=== PATIENT | male | born 1945 | race Caucasian/White ===

== ENCOUNTER → 2023-03-14 15:25 | Outpatient (REF) | payer MEDICARE, OTHER, SELFPAY ==
[2023-03-14 18:06] LABS: Vitamin B12 244 pg/ml (239-931)
== END ==
LOC: REG 15:25
PROVIDERS: ATTENDING PHYSICIAN Family Medicine
DX: E53.8 Deficiency of other specified B group vitamins (principal)
CPT/HCPCS: 36415; 82607

== ENCOUNTER → 2023-05-15 10:05 | Outpatient (REF) | payer MEDICARE, OTHER, SELFPAY ==
[2023-05-15 11:15] LABS: % Basophils 0.4 % (0-2); % Eosinophils 1.5 % (0-6); % Immature Granulocytes 0.3 % (0-0.5); % Lymphocytes 21.1 % (20.5-51.1); % Monocytes 6.1 % (1.7-9.3); % Neutrophils 70.6 % (42.2-75.2); Absolute Eosinophils 0.1 10^3/uL (0-0.7); Absolute Lymphocytes 1.6 10^3/uL (1.2-3.4); Absolute Monocytes 0.5 10^3/uL (0.1-0.6); Absolute Neutrophils 5.3 10^3/uL (1.4-6.5); Hematocrit 45.4 % (39.0-52.0); Hemoglobin 15.2 g/dL (13.0-18.0); Mean Corp Hgb Conc. 33.5 g/dL (33.0-37.0); Mean Corpuscular Hgb 32.3 pg (27.0-31.0); Mean Corpuscular Volume 96.4 fL (80.0-94.0); Mean Platelet Volume 10.1 fL (7.4-10.4); Nucleated Red Blood Cells % 0 % (-); Platelet Count 198 10^3/uL (130-400); Red Blood Cell Count 4.71 10^6/uL (4.70-6.10); Red Cell Dist. Width 13.4 % (11.5-14.5); White Blood Cell Count 7.5 10^3/uL (4.8-10.8)
[2023-05-15 11:57] LABS: ALT (SGPT) 18 U/L (0-50); AST (SGOT) 23 U/L (17-59); Albumin 4.3 g/dl (3.5-5.0); Alkaline Phosphatase 67 U/L (38-126); Direct Bilirubin 0.4 mg/dl (0.0-0.4); Iron 113 ug/dl (49-181); Total Bilirubin 0.8 mg/dl (0.2-1.3); Total Protein 6.7 g/dl (6.3-8.2)
[2023-05-15 12:06] LABS: Percent Saturation 42 % (20-50); Total Iron Binding Capacity 265 ug/dl (261-462)
[2023-05-15 12:56] LABS: Folate > 20.0 ng/ml (2.76-20)
[2023-05-15 13:20] LABS: Vitamin B12 > 1000 pg/ml (239-931)
[2023-05-15 13:55] LABS: Vitamin B12 > 1000 pg/ml (239-931)
[2023-05-18 10:36] LABS: Methylmalonic Acid 0.19 umol/L (0.00-0.40)
[2023-05-18 18:42] LABS: Chromogranin A 184 ng/mL (0-187)
== END ==
LOC: REG 10:05
PROVIDERS: ATTENDING PHYSICIAN Internal Medicine Hematology & Oncology; FAMILY PHYSICIAN Family Medicine; REFERRING PHYSICIAN Specialist
DX: C7A.098 Malignant carcinoid tumors of other sites (principal); E34.0 Carcinoid syndrome; D50.9 Iron deficiency anemia, unspecified; E53.8 Deficiency of other specified B group vitamins
CPT/HCPCS: 36415; 80076; 82607; 82728; 82746; 83540; 83550; 83921; 85025; 86316

== ENCOUNTER → 2023-06-25 15:03 | Outpatient (REF) | payer MEDICARE, OTHER, SELFPAY ==
[2023-06-25 15:40] LABS: Blood Urea Nitrogen 30 mg/dl (9-20); Calcium 10.2 mg/dl (8.4-10.2); Carbon Dioxide 26 mmol/L (22-30); Chloride 107 mmol/L (98-107); Glucose 123 mg/dl (70-99); Phosphorus 2.5 mg/dl (2.5-4.5); Potassium 3.6 mmol/L (3.5-5.1); Sodium 141 mmol/L (135-145); eGFR 44.65
[2023-06-25 16:11] LABS: PSA, Total - Diagnostic 4.97 ng/ml (0.0-4.0)
[2023-06-25 16:17] LABS: Intact PTH 125.2 pg/ml (13.6-85.8)
[2023-06-25 16:55] LABS: Urine Protein < 5 mg/dl (0-12)
== END ==
LOC: REG 15:03
PROVIDERS: ATTENDING PHYSICIAN Specialist; FAMILY PHYSICIAN Family Medicine
DX: N18.31 Chronic kidney disease, stage 3a (principal); N25.81 Secondary hyperparathyroidism of renal origin; I10 Essential (primary) hypertension; C61 Malignant neoplasm of prostate
CPT/HCPCS: 36415; 80048; 82570; 83970; 84100; 84153; 84156

== ENCOUNTER → 2023-09-02 11:07 | Outpatient (REF) | payer MEDICARE, OTHER, SELFPAY ==
[2023-09-02 11:45] LABS: Ionized Calcium 1.38 mMOL/L (1.15-1.33)
[2023-09-02 12:09] LABS: ALT (SGPT) 16 U/L (0-50); AST (SGOT) 21 U/L (17-59); Albumin 4.2 g/dl (3.5-5.0); Alkaline Phosphatase 68 U/L (38-126); Blood Urea Nitrogen 22 mg/dl (9-20); Calcium 10.6 mg/dl (8.4-10.2); Carbon Dioxide 23 mmol/L (22-30); Chloride 110 mmol/L (98-107); Glucose 90 mg/dl (70-99); Sodium 141 mmol/L (135-145); Total Bilirubin 0.8 mg/dl (0.2-1.3); Total Protein 6.5 g/dl (6.3-8.2); eGFR 41.52
[2023-09-02 12:25] LABS: Vitamin D, 25-OH*** 33.8 ng/mL (30-80)
[2023-09-04 10:22] LABS: Intact PTH 55.2 pg/ml (13.6-85.8)
== END ==
LOC: REG 11:07
PROVIDERS: ATTENDING PHYSICIAN Internal Medicine Endocrinology, Diabetes & Metabolism; FAMILY PHYSICIAN Family Medicine; OTHER PHYSICIAN Internal Medicine Hematology & Oncology; REFERRING PHYSICIAN Specialist
DX: N25.81 Secondary hyperparathyroidism of renal origin (principal); E55.9 Vitamin D deficiency, unspecified
CPT/HCPCS: 36415; 80053; 82306; 82330; 83970

== ENCOUNTER → 2023-09-20 09:33 | Outpatient (REF) | payer MEDICARE, OTHER, SELFPAY | LOC: RAD 09:33 | PROVIDERS: ATTENDING PHYSICIAN Internal Medicine Endocrinology, Diabetes & Metabolism; FAMILY PHYSICIAN Family Medicine | DX: N25.81 Secondary hyperparathyroidism of renal origin (principal) | CPT/HCPCS: 78071; A9500 ==

== ENCOUNTER 2023-09-29 11:32 | Inpatient (IN) | payer MEDICARE, OTHER, SELFPAY ==
[2023-09-29] VITALS (7 sets, daily range): BP systolic 116–194; BP diastolic 69–101
[2023-09-29 09:44] LABS: Glucose - Point of Care 97 mg/dl (70-99)
[2023-09-29 09:54] LABS: % Basophils 0.6 % (0-2); % Eosinophils 5.7 % (0-6); % Immature Granulocytes 0.3 % (0-0.5); % Lymphocytes 18.9 % (20.5-51.1); % Monocytes 8.1 % (1.7-9.3); % Neutrophils 66.4 % (42.2-75.2); Absolute Basophils 0.1 10^3/uL (0-0.2); Absolute Eosinophils 0.5 10^3/uL (0-0.7); Absolute Lymphocytes 1.7 10^3/uL (1.2-3.4); Absolute Monocytes 0.7 10^3/uL (0.1-0.6); Absolute Neutrophils 5.8 10^3/uL (1.4-6.5); Hemoglobin 14.2 g/dL (13.0-18.0); Mean Corp Hgb Conc. 34.6 g/dL (33.0-37.0); Mean Corpuscular Hgb 33.3 pg (27.0-31.0); Mean Corpuscular Volume 96.2 fL (80.0-94.0); Mean Platelet Volume 9.5 fL (7.4-10.4); Nucleated Red Blood Cells % 0 % (-); Platelet Count 150 10^3/uL (130-400); Red Blood Cell Count 4.26 10^6/uL (4.70-6.10); Red Cell Dist. Width 13.2 % (11.5-14.5); White Blood Cell Count 8.8 10^3/uL (4.8-10.8)
--- NOTE | 2023-09-29 10:01 | CON.NEURO4 ---
Consultation - Neurology 4
-
CONSULTING PHYSICIAN: Yuly
REFERRING PHYSICIAN: Fernando
DICTATED BY: Yuly
DATE/TIME OF REQUEST: 09/29/23 at 937
DATE/TIME OF CONSULTATION:09/29/23 at 945
Reason for Consultation: stroke alert
History of Present Illness:
78-year-old male presents for evaluation for aphasia, dysarthria and right facial weakness. His confirms that at 7 AM he woke up at his baseline. He went back to sleep. Around 815 he woke up again and was 'speaking gibberish', was dysarthric
and had noticeable right facial weakness. He was able to get up and walk to the bathroom. No other focal neurological deficits. He did noticed the change and was 'pointing to his face and looking confused.' Symptoms improved while he was in the
ER. Only residual symptom is right facial weakness. Of note he has a history of B12 deficiency and remote carcinoid tumor status post bowel resection. He has had lower extremity paresthesias, hearing loss and memory issues going back to last
September or October. This had improved with taking B12 but seems to have worsened recently. Family reports some gait festination, stooped posture, gait imbalance, and worsening short-term and long-term memory as well as increased urinary frequency
over the past few months. He does not have any tremor. He has not seen a neurologist.
Past Medical History: HTN, Hypercholesterolemia, Remote history of carcinoid, History of kidney stones
Past Surgical History: Appendectomy and Bowel resection
Social History
Tobacco: Non-smoker
Alcohol: Occasional
Personal:
Living: with family
Employment: Retired
Family History
Family History: mom with AD, onset in 60s or 70s
Allergies
lisinopril [Lisinopril] Allergy (Verified 09/29/23 09:52)
Swelling
octreotide Adverse Reaction (Verified 09/29/23 09:52)
Diarrhea, Vomiting
hospital linen Allergy (Uncoded 09/29/23 09:35)
Rash
Home Medications
�Medication �Instructions �Recorded
acetaminophen 325 mg tablet 325 mg PO QPM 12/04/22
(Tylenol)
acetaminophen 325 mg tablet 650 mg PO DAILY 12/04/22
(Tylenol)
allopurinol 300 mg tablet 300 mg PO DAILY 12/04/22
calcitriol 0.25 mcg capsule 0.25 mcg PO HS 12/04/22
carvedilol 25 mg tablet 25 mg PO BID 12/04/22
hydrochlorothiazide 25 mg tablet 25 mg PO DAILY 12/04/22
omeprazole 20 mg tablet,delayed 20 mg PO DAILY 12/04/22
release
potassium chloride 20 mEq 20 meq PO BID 12/04/22
tablet,extended release
Review of Symptoms:
Patient denies any fever, headache, chest pain, shortness of breath, GI or symptoms.
�Per the HPI.�All systems are reviewed negative except above.
Vital Signs
Temp Pulse Resp BP Pulse Ox
98.4 F 53 16 194/101 98
09/29/23 09:35 09/29/23 09:35 09/29/23 09:35 09/29/23 09:35 09/29/23 09:35
Lab Results
09/29/23 09:45
Physical Exam:
The patient is afebrile, heart sounds S1 and S2 are regular, and chest is clear to auscultation bilaterally.
NIH Stroke Scale (if applicable):
I performed the NIH stroke scale on the patient on 09/29/23 at 945am. The patient scored 1 points on the NIH stroke scale assessment, which were assigned as follows: 1 for R facial weakness
Neurologic Examination:
The patient is awake, alert and oriented x 3. He is able to follow commands and answer questions appropriately. There is no aphasia or dysarthria. On cranial nerve assessment, pupils are 3 mm bilateral, round and reactive to light and
accommodation. Visual murrell are full. Extraocular movements are intact. Facial sensations are intact and bilaterally symmetrical, +R central CN 7 palsy--moderate. Hearing is intact bilaterally to normal conversation volume. Tongue palate and uvula
are midline. Sternocleidomastoid strengths are full bilaterally. Motor strengths are 5/5 bilateral upper and lower extremities on medical research [place] scale. There is no drift or involuntary movement noted. Deep tendon reflexes are 2+ bilateral
upper and lower extremities and Babinski is absent bilaterally. Sensations of pain, touch, temperature and vibration are intact and bilaterally symmetrical. There was no extinction noted on double simultaneous stimulation. Coordination is intact by
finger to nose bilaterally.
Neuro Imaging:
HCT: no acute findings
Impression:
MONALISA CORDOVA is a 78 year old M who has presented to the hospital with garbled speech, possible facial weakness with recent gait imbalance, B12 deficiency.
Differentials for the patient's presentation include:
1. tia vs rapid improvement after small L hemispheric ischemic stroke
2. exacerbation of underlying condition--PD, NPH, AD; component of B12 deficiency
Patient has the following risk factors for their symptoms: age, htn, hld
IV Tenecteplase/IAT candidacy: not a candidate given NIHSS 1, rapid improvement in symptoms
Recommendations:
-check MRI brain without contrast to evaluate for stroke
-MRA head/neck
-BP goal is normotension.
-load with ASA and Plavix, continue DAPT x 21 days, then d/c Plavix and continue ASA
- Check hemoglobin A1C. Goal is normoglycemia.
- Please start the patient on atorvastatin 80 mg by mouth daily at bedtime. Check LDL. Goal LDL after stroke is <70.
- Check an echocardiogram.
-PT/OT/ST evaluations
- DVT prophylaxis
-continue neurochecks
-check B12, MMA, thyroid panel, ammonia, RPR
Discussed patient care with: patient, patient's family, Dr. King
Critical care time 65 mins
[2023-09-29 10:05] LABS: INR 1.04; PT 13.4 Sec (11.4-14.6)
[2023-09-29 10:06] LABS: APTT 26.9 Sec (23.4-35.0)
[2023-09-29 10:11] LABS: Blood Urea Nitrogen 28 mg/dl (9-20); Calcium 10.3 mg/dl (8.4-10.2); Carbon Dioxide 23 mmol/L (22-30); Chloride 110 mmol/L (98-107); Glucose 88 mg/dl (70-99); Potassium 4.4 mmol/L (3.5-5.1); Sodium 139 mmol/L (135-145); eGFR 56.93
--- NOTE | 2023-09-29 10:26 | ED.CVA ---
History of Present Illness
General
Chief Complaint: CVA/TIA Symptoms
Source: patient, family and ambulance crew
Exam Limitations: none
Time Seen by Provider: 09/29/23 09:43
Onset of Stroke Symptoms
Onset of symptoms known: Yes
Date of onset of symptoms: 09/29/23
Time of onset of symptoms: 07:30
History of Present Illness
History of Present Illness:
78-year-old male woke up at 730 at baseline neurologic and health. Went back to sleep. Woke back up at 8:00. Then was noted to have difficulty with speech and difficulty with cognitive issues. Questionable facial droop at that time. Medics were
called. Medics noted no facial droop but appeared to have difficulty with cognitive issues. Speech has improved significantly upon arrival. No history of same. Has had recent issues with gait shuffling difficulty with starting his gait. This
has been going on for months. Had some issues in the fall of last year although resolved after B12 shots
Past History
Past History
ED Past Medical History: HTN, Hypercholesterolemia, Other (Remote history of carcinoid ) and Other (History of kidney stones )
ED Past Surgical History: Appendectomy and Bowel resection
Social History
Tobacco: Non-smoker
Alcohol: Occasional
Personal:
Living: with family
Employment: Retired
Family History
Family History: Negative Diabetes or CAD
Review of Systems
Review of Systems
All Other Systems: Not applicable
Respiratory: Reports no symptoms
Cardiac: Reports no symptoms
Phy Exam
Physical Exam
Physical Exam:
GENERAL: Alert and oriented in no apparent distress
EYE: Extraocular muscles intact. Questionable slight right upper lid lag. No anisocoria. No obvious facial droop.
NECK: Supple, no significant adenopathy.
ENT: Pharynx without erythema
CARDIAC: Regular rate and rhythm without any obvious murmurs.
LUNGS: Clear breath sounds,normal
ABDOMEN: Soft, without focal tenderness or distention
NEUROLOGICAL: Alert and oriented , speech essentially normal. Occasionally catches on a word. Giwkyv-ey-naoj normal although cognitively had some issues with the left side. No drift. Good lower extremity strength.
SKIN: Warm and dry, no rash or lesion, no discoloration, skin intact.
MUSCULOSKELETAL: No edema,no deformity.Good color
PSYCH: Normal and appropriate interaction.
Course
Orders/Labs/Results
Orders:
Orders
09/29/23 09:34
CT Head W/o Cont STROKE ALERT Urgent
Reason For Exam: r/o cva
09/29/23 09:44
Electrocardiogram (*1) Stat
Reason for Study: Other
Other Reason for Exam: neuro symptoms
Cardiac Monitoring- Treatment ONCE
EKG- Treatment ONCE
IV Insert/Care/Rem.- Treatment PRN
09/29/23 09:45
Basic Metabolic Panel Urgent
C-Reactive Protein Urgent
Complete Blood Count/With Diff Urgent
Erythrocyte Sed Rate Urgent
Folate Urgent
Free T4 Urgent
PTT Urgent
Prothrombin Time Urgent
Syphilis/T. pallidum Ab Reflex Urgent
TSH Urgent
Vitamin B12 Urgent
09/29/23 10:49
Aspirin Chewable [Low Strength Aspirin] 324 mg PO NOW STA
09/29/23 11:06
Admit/Transfer Patient As Directed
Co-Sign Provider:
Level of Care: Inpatient admission
Assign to:: Telemetry
Physician / Group: katelyn noel
Diagnosis: dysarthria, confusion
Reason for Telemetry: CVA/TIA
Date to Stop Telemetry: 10/02/23
Time to Stop Telemetry: 11:00
Reason for Hospitalization: dysarthria
Expected length of stay greater than two midnights?: Yes
ELOS- Estimated Length of Stay in days: 2
I certify the patient meets the requirements for IP care: Yes
09/29/23 11:07
PRN Pain Medication Management As Directed
May give lesser potent ordered pain med per pt: Yes
preference::
Protocol:: Medication orders for pain may be administered in a
manner that supports deferring to patient preference
when the pt is:
- Requesting an ordered lesser potent pain medication.
Least to most potent pain medications are defined
as: acetaminophen < NSAID < tramadol < opioids
(morphine, oxycodone, hydromorphone).
- Requesting a lesser dose of the same medication IF
ORDERED.
- Requesting a less intrusive route of administration
if both routes are prescribed by the provider (PO <
IV).
09/29/23 11:09
Code Status As Directed
Resuscitation Status: Full Code
09/29/23 11:23
Clopidogrel Bisulfate [Plavix] 75 mg PO NOW STA
09/29/23 11:25
Add On- LAB Routine
Comments:: Please add to today's labs or draw as routine
Tests Added?: TSH reflex, Free T4, Folate, Vit. B12, ESR, crp, ammonia, rpr,mma
09/29/23 11:26
Echo 2D MMode Color/Doppler Routine
Reason for Study: Thrombotic source for stroke-like sxs
MA [place] Routine
Comment:
Reason For Exam: stroke
OK for patient to be off Cardiac Monitoring for MRI: Yes
Recent pill cam endoscopy?: No
09/29/23 11:33
MA Neck With Contrast Routine
Reason For Exam: stroke
Recent pill cam endoscopy?: No
09/29/23 12:00
Atorvastatin [Lipitor] 40 mg PO QPM
09/29/23 12:27
Acetaminophen [Tylenol/Feverall] 650 mg RECTAL Q4HPRN PRN
Acetaminophen [Tylenol] 650 mg PO Q4HPRN PRN
Ondansetron Injectable [Zofran] 4 mg IV Q6HPRN PRN
09/29/23 12:27
Echo 2D MMode Color/Doppler Routine
Reason for Study: stroke/TIA
Case Management Consult ONCE
Case Management Consult: Discharge Planning
Comment: stroke/tia
DIETARY CONSULT Routine
Reason for Consult: stroke/TIA
NEUROLOGY CONSULT Urgent
Consulting Provider: Louisa Emery
Was physician already notified: Yes
National Account Director Urgent
MR Brain Without Contrast Routine
Comment:
Reason For Exam: stroke/TIA
Recent pill cam endoscopy?: No
Activity As Directed
Activity Level: Ambulate
NIH Stroke Scale As Directed
Directions: Per protocol
Comment: every shift and with any change in condition or mental status
Neurological Checks As Directed
Frequency: q4h
Additional Instructions:: q4h x 24h upon admission to the floor, then qshift & with any change in condition
and mental status
Patient Education As Directed
Type: Stroke education packet
Comment: provide to patient and family
Swallow Screening CVA/TIA ONLY As Directed
Comment: NPO until swallowing screening completed
If patient FAILS swallow screening:: NPO, Speech Therapy consult, Aspiration Precautions
If patient PASSES swallow screening, diet:: Cholesterol Lowering
Vital Signs As Directed
Frequency: Per unit guidelines
Ot Eval And Treat Routine
Pt Eval And Treat Routine
Activity Level: Ambulate
Speech Therapy Eval & Treat Routine
US Cerebrovascular Routine
Comment:
Reason For Exam: stroke/TIA
DX Deep Vein Thrombosis Video Routine
09/29/23 18:00
Atorvastatin [Lipitor] 40 mg PO QPM
Enoxaparin Sodium [Lovenox] 40 mg SC QPM
09/30/23 06:00
Basic Metabolic Panel IN AM
Cardiovascular Evaluation IN AM
Cardiovascular Evaluation IN AM
Glycohemoglobin (HgbA1c) IN AM
09/30/23 08:00
Aspirin Chewable [Low Strength Aspirin] 81 mg PO DAILY
Aspirin Low Dose EC [Aspir Low (Enteric Coated)] 81 mg PO DAILY
Clopidogrel Bisulfate [Plavix] 75 mg PO DAILY
Clopidogrel Bisulfate [Plavix] 75 mg PO DAILY
10/02/23 11:00
DC Protocol for Telemetry ONCE
Abnormal Lab Results
09/29/23
09:45
RBC 4.26 L 10^6/uL
(4.70-6.10)
MCV 96.2 H fL
(80.0-94.0)
MCH 33.3 H pg
(27.0-31.0)
Absolute Monos (auto) 0.7 H 10^3/uL
(0.1-0.6)
Lymphocytes % 18.9 L %
(20.5-51.1)
Chloride 110 H mmol/L
(98-107)
BUN 28 H mg/dl
(9-20)
Calcium 10.3 H mg/dl
(8.4-10.2)
Vitamin B12 > 1000 H pg/ml
(247-931)
09/29/23 09:45
09/29/23 09:45
Vital Signs
Initial and Last Documented VS:
Initial Vital Signs
BP
194/101
09/29/23 09:32
Last Documented Vital Signs
Temp Pulse Resp BP Pulse Ox
97.3 F 54 19 176/92 93
09/29/23 13:12 09/29/23 13:12 09/29/23 13:12 09/29/23 13:12 09/29/23 13:12
*Radiology
Radiology exam reviewed: radiology read reviewed (Negative)
*Pulse Oximetry
Patient hypoxic: no
*EKG
Interpreted by ED Provider?: Yes
Interpretation: abnormal
Comparison EKG: changes noted
Heart Rate: 50
Rate: bradycardiac
Rhythm: sinus
[place]: left axis deviation
Interval: normal interval
QRS Pattern: normal QRS
Ischemia: no ischemia
*Animation Director Interpretation
Rate: normal
Interpretation: normal
Heart Rate: 60
Rhythm: sinus
*Critical Care Note
Total Time (30-74mins, 75-104mins- exclusive of procedures): 40
Update Note
Update Note:
Patient has been rechecked multiple times. Also went over the CT did discuss with neurology. No indication for thrombolytics. Significant/almost resolved symptoms. Will hold on CTA given a very low NIH of 1-0. Will hold on this secondary to
risk for renal issue and very low suspicion for large vessel occlusion. Also considerations with this parkinsonian-like gait issue and further neurologic workup.
ED Attending Note
-
Portions of this chart may have been created with voice recognition software.� Occasional wrong word or��sound alike� substitutions may have occurred due to the inherent limitations of voice recognition software.
Discharge Plan
Departure
Patient Disposition: Admit
Date of Disposition: 09/29/23
Time of Disposition: 10:35
Admit to: Telemetry
Presentation/result/management discussed w/ accepting MD/DO: Neurology
Discharge Problem:
Expressive aphasia/TIA, Possible CVA
Interventions
Interventions:
*Risk Screen - Suicide Last Done: 09/29/23 13:12
*General Assessment Last Done: 09/29/23 09:35
*Neglect/Abuse Screening Last Done: 09/29/23 09:35
ED- Fall Risk Assessment Last Done: 09/29/23 10:32
*ED COVID-19 Vaccine History Last Done: 09/29/23 13:12
*Nursing Disposition Last Done: 09/29/23 12:30
ED- Pulmonary Assessment Last Done: 08/18/24 10:26
ED- Neurological Assessment Last Done: 09/29/23 10:26
ED- Cardiac Assessment Last Done: 09/29/23 10:26
ED Swallowing Screen Last Done: 09/29/23 10:26
Discharge Date and Time
Discharge Date/Time: 09/29/23 12:30
--- NOTE | 2023-09-29 10:43 | HPS.HSE ---
Family Physician
-
Family Physician: Alexei High
Chief Complaint
-
Garbled speech, confusion
History of Present Illness
78-year-old male with a past medical history of B12 deficiency, chronic kidney disease, hyperparathyroidism, hypertension, and remote history of carcinoid syndrome presents with acute onset of speech difficulties and confusion. Family reports that
7:30 AM, patient was normal. At 8 AM, he developed garbled speech, and cognitive impairment. Stroke alert was called, no tPA was recommended by neurology. His speech is much improved in the ER, but he remains mildly confused. He denies headache,
vision changes, weakness, dysphagia. He does report gait difficulties and imbalance for the last several months. He has been receiving B12 replacement for B12 deficiency. No fever. No vomiting.
Medical History
Past Medical History
Past Medical History: Reports Other
Additional Past Medical History:
Hypertension
Hyperlipidemia
Remote history of carcinoid syndrome
Kidney stones
Hyperparathyroidism
Chronic kidney disease
Vitamin B12 deficiency
Past Surgical History: Reports Other
Additional Past Surgical History:
Appendectomy
Bowel resection
Social History
Tobacco: Non-smoker
Alcohol: Occasional
Personal:
Living: With Family
Family History
Family History: Not pertinent
Allergies / Home Medications
Allergies reflects when Allergies were last updated in [facility].
Home Medications with original date entered in [facility]
Allergy/Medication List:
Allergies
Allergy/AdvReac Type Severity Reaction Status Date / Time
lisinopril [Lisinopril] Allergy Swelling Verified 09/29/23 09:52
octreotide AdvReac Diarrhea, Verified 09/29/23 09:52
Vomiting
hospital linen Allergy Rash Uncoded 09/29/23 09:35
Home Medications Table - record
�Medication �Instructions �Recorded �Confirmed
acetaminophen 325 mg tablet 650 mg PO DAILY 12/04/22 09/29/23
(Tylenol)
allopurinol 300 mg tablet 300 mg PO DAILY 12/04/22 09/29/23
calcitriol 0.25 mcg capsule 0.25 mcg PO QMWF 12/04/22 09/29/23
carvedilol 25 mg tablet 25 mg PO BID 12/04/22 09/29/23
potassium chloride 20 mEq 20 meq PO BID 12/04/22 09/29/23
tablet,extended release
calcium carbonate (Tums) 200 mg PO QIDPRN PRN gerd 09/29/23 09/29/23
cyanocobalamin (vitamin B-12) 1,000 mcg PO DAILY 09/29/23 09/29/23
1,000 mcg tablet
hydrochlorothiazide 25 mg tablet mg DAILY 09/29/23
loperamide 2 mg tablet 2 mg PO TIDPRN PRN diarrhea 09/29/23 09/29/23
therapeutic multivitamin 1 tab PO DAILY 09/29/23 09/29/23
Review of Systems
-
A 12 point ROS was completed and negative except as noted: Yes
Physical Exam
Vital Signs
Vital Signs
Temp Pulse Resp BP Pulse Ox
98.4 F 63 19 179/89 98
09/29/23 09:35 09/29/23 10:15 09/29/23 10:15 09/29/23 10:00 09/29/23 10:26
Physical Exam
General: Well Developed, Well Nourished and No Apparent Distress
HEENT: NormoCephalic, Anicteric and Moist mucous membranes
Respiratory: Clear
Cardiac: S1/S2
GI: Soft, Non Tender and Non Distended
Musculoskeletal: No Clubbing, No Cyanosis and No Edema
Skin: Warm
Neuro: Other (Speech mostly clear, not oriented to time, strength normal)
Psych: Calm
Laboratory Results
-
09/29/23 09:45
09/29/23 09:45
Laboratory Results
PT 13.4 Sec (11.4-14.6) 09/29/23 09:45
INR 1.04 09/29/23 09:45
APTT 26.9 Sec (23.4-35.0) 09/29/23 09:45
Impression/Plan
-
HPI: 78-year-old male with a past medical history of B12 deficiency, chronic kidney disease, hyperparathyroidism, hypertension, and remote history of carcinoid syndrome presents with acute onset of speech difficulties and confusion. Family reports
that 7:30 AM, patient was normal. At 8 AM, he developed garbled speech, and cognitive impairment. Stroke alert was called, no tPA was recommended by neurology. His speech is much improved in the ER, but he remains mildly confused. He denies
headache, vision changes, weakness, dysphagia. He does report gait difficulties and imbalance for the last several months. He has been receiving B12 replacement for B12 deficiency. No fever. No vomiting.
#Acute dysarthria
#Altered mental status/cognitive impairment
Dysarthria much improved, cognition improved but patient remains confused
Seen by neurology in the ER, no tPA recommended
Check brain MRI, MRA head/neck, echo, hemoglobin A1c, lipid profile
Neurology recommends loading with aspirin and Plavix, continuing Plavix/aspirin for 21 days, then just aspirin alone
Start a atorvastatin 40 mg at bedtime
Consult PT/OT/speech, check B12 levels
Neurology recommends normotension
#Recent gait dysfunction
Consult PT
#Benign essential hypertension
Continue home Coreg 25 mg twice a day, hydrochlorothiazide 25 mg daily
Goal of normotension per neurology
#Vitamin B12 deficiency
Continue vitamin B12 supplements
#Stage III chronic kidney disease
Monitor creatinine
DVT prophylaxis�subcu Lovenox
Full code
Total time spent to see the patient on the floor, examine the patient, review data and lab results, discuss treatment plan with patient, nursing staff around 76 minutes.
[2023-09-29] MEDS: LOW STRENGTH ASPIRIN 324 MG PO (11:08)
[2023-09-29 12:07] LABS: Erythrocyte Sed Rate 12 mm/hour (0-20)
[2023-09-29 12:22] LABS: Ammonia < 9 umol/L (9-30)
[2023-09-29 12:27] LABS: C-Reactive Protein < 5.00 mg/L (0.0-10.00)
[2023-09-29 12:44] LABS: Free T4 1.05 ng/dl (0.78-2.19)
[2023-09-29 13:34] LABS: Folate 11.6 ng/ml (2.76-20); Vitamin B12 > 1000 pg/ml (239-931)
[2023-09-29 15:02] LABS: TSH 2.21 uIU/ml (0.47-4.68)
--- NOTE | 2023-09-29 15:13 | PTOTSP ---
SPEECH THERAPY SWALLOW EVALUATION:
Patient exhibits grossly functional oropharyngeal swallow at this time. No history of dysphagia noted. Patient remains at risk for aspiration and related complications given possible acute CVA and confusion. Recommend Regular texture solids, thin
liquids. Medications whole with applesauce per patient preference. General aspiration precautions. Speech therapy to follow, assess diet tolerance and modify as appropriate, provide continued education regarding aspiration risks/precautions, and
complete full speech/language/cognitive communication evaluation.
RECOMMEND:
1) Regular texture solids, thin liquids
2) Medications whole with applesauce per patient preference
3) Aspiration precautions: Upright positioning; Small single sips/bites; Slow rate of intake; Only eat when awake/alert
4) ST to follow for swallow therapy and to complete speech/language/cognitive communication evaluation
[2023-09-29] MEDS: PLAVIX 75 MG PO (16:25)
[2023-09-29] MEDS: ORETIC 25 MG PO (16:25)
[2023-09-29] MEDS: VITAMIN B-12 1000 MCG PO (16:25)
[2023-09-29] MEDS: TYLENOL 650 MG PO (16:25)
[2023-09-29] MEDS: ZYLOPRIM 300 MG PO (16:25)
[2023-09-29] MEDS: COREG 25 MG PO ×2 (16:26→20:49)
[2023-09-29 16:37] LABS: Urine Albumin Negative (Neg - Trace); Urine Bilirubin Negative (Negative); Urine Character Clear (Clear); Urine Color Yellow; Urine Glucose Negative (Negative); Urine Ketone Negative (Negative); Urine Leukocyte Negative (Negative); Urine Nitrite Negative (Negative); Urine Occult Blood Negative (Negative); Urine Urobilinogen Negative (Neg - 1+)
[2023-09-29] MEDS: LOVENOX 40 MG SC (17:40)
[2023-09-29] MEDS: LIPITOR 40 MG PO (17:40)
[2023-09-30] VITALS (7 sets, daily range): BP systolic 120–163; BP diastolic 63–91; PULSE 68–69; O2SAT 95; BMI 24.3
--- NOTE | 2023-09-30 00:26 | W.PN.UPDATE ---
Update Note
Progress Note Update
pt noted to have nocturnal bradycardia to 30s while sleeping
received 25mg coreg--may need to consider lowering dose
--- NOTE | 2023-09-30 01:06 | PTCARENOTE ---
Patient tele alarm for HR in 30's intermittently. 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 Patient asymptomatic. For continued monitoring.
[2023-09-30 07:08] LABS: Blood Urea Nitrogen 26 mg/dl (9-20); Carbon Dioxide 26 mmol/L (22-30); Chloride 106 mmol/L (98-107); Estimated Creatinine Clearance 41 ml/min; Glucose 93 mg/dl (70-99); HDL Cholesterol 31 mg/dl; LDL Cholesterol, Calculated 92 mg/dl; Magnesium 1.6 mg/dl (1.6-2.3); Potassium 3.9 mmol/L (3.5-5.1); Sodium 138 mmol/L (135-145); Total Cholesterol 173 mg/dl (50-199); Triglyceride 250 mg/dl (10-149); Very Low Density Lipoprotein 50 mg/dl (0-30); eGFR 52.09
[2023-09-30 09:01] LABS: Glycohemoglobin (HgbA1c) 5.2 % (4.0-5.6)
[2023-09-30] MEDS: COREG PO (10:24)
[2023-09-30] MEDS: MAGNESIUM SULFATE 50 IV (10:24)
[2023-09-30] MEDS: LOW STRENGTH ASPIRIN 81 MG PO (10:25)
[2023-09-30] MEDS: TYLENOL 650 MG PO (10:25)
[2023-09-30] MEDS: ROCALTROL 0.25 MCG PO (10:25)
[2023-09-30] MEDS: ORETIC PO ×2 (10:25→11:46)
[2023-09-30] MEDS: ZYLOPRIM 300 MG PO (10:25)
[2023-09-30] MEDS: PLAVIX 75 MG PO (10:25)
[2023-09-30] MEDS: VITAMIN B-12 1000 MCG PO (10:25)
--- NOTE | 2023-09-30 11:29 | W.PN.HOSP.TC ---
Today's Communication/Plan
-
stop coreg
neuro and vascsx to follow
Assessment / Plan
Assessment / Plan
78yo M with PMHx of carcinoid with metastases (followed by ), gout, HTN came with episode of confusion with concern for face drooping and aphasia, stroke code called and patient admitted for the stroke w/u. Was not a candidate for tPa. MRA
showed diminished blood flow in both posterior cerebral arteries, 3mm saccular aneurism L ICA, fusiform 8.9m aneurism of L ICA, diffuse ectasia of basilar and R vertebral artery. Severe hy[poplasia of L vertebral artery. No signs of CVA or brain
metastatic disease. Symptoms resolved on the next day
A/P:
#confusion transient
possibly 2/2 hypoperfusion 2/2 significant intracranial vascular disease
Neurology to follow
ASA, statin
control BP
#Bradycardia
hold BB
#Essential HTN
patient stopped HCTZ since he was feeling dizzy with it
Attempt alternative agents for BP control
#L ICA fusiform and saccular aneurism
VascSx consult
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
Neuro to follow
#Chronic lower back pain
no LE paresthesia, no radiculopathy
already followed by PCP
#Vertigo
2/2 diminished posterior blood flow vs BPPV
Miclizine and outpatient ENT
#Carcinoid syndrome
follow up with outpatient oncology
DVT ppx hep
Full code
I have spent at least 60min reviewing chart, test results, communication with consultants and direct patient care
Anticipated Discharge: Within 24 hours
Subjective/Interval History
-
Date of Service: September 30, 2023
Objective Data
-
Labs:
Laboratory Results
09/30/23
06:15
Sodium 138
Potassium 3.9
Chloride 106
Carbon Dioxide 26
BUN 26 H
Creatinine 1.4 H
Glucose 93
Calcium 10.0
Vital Signs:
Vital Signs
Temp Pulse Resp BP Pulse Ox
97.5 F 52 17 155/75 96
09/30/23 11:25 09/30/23 11:25 09/30/23 11:25 09/30/23 11:25 09/30/23 11:25
I&O
09/29/23 09/30/23 10/01/23
06:59 06:59 06:59
Intake Total 480 / 480
Output Total 400 / 400
Balance 80 / 80
Review of Systems
-
History Source: Patient
All other systems: Reviewed and negative
Physical Exam
-
General: Well Developed
HEENT: Normocephalic and Atraumatic
Respiratory: Clear to Auscultation
Cardiac: Regular Rhythm
GI: Soft, Nontender and Nondistended
Genito-urinary: No Costovertebral Tender
Musculoskeletal: No Clubbing, No Cyanosis and No Edema
Skin: Warm; Negative Dry
Neuro: Awake, Alert, Oriented, AO x 3 and No Motor Deficits
Psych: Calm
[2023-09-30] MEDS: PROCARDIA XL (EXTENDED RELEASE) 30 MG PO (13:03)
--- NOTE | 2023-09-30 13:58 | W.PN.NEURO.1 ---
Today's Communication / Plan
-
78 yr. old male with h/o carcinoid disease with gait ataxia secondary to spinal stenosis and L4L5 disc herniation
Will need neurosurgery eval for lumbar discectomy as OP
Neuro Assessment/Plan
Assessment
78 yr. old male with h/o metastatic carcinoid tumor. Lumbar spondylosis with lumbar radiculopathy.
Plan
MRI Lumbar spine
Neurosurgery consult
Subjective/Objective
Subjective Data
Date of Service: September 30, 2023
Pat c/o LBP with numbness of right leg. Does not recall events leading to admission
Objective Data
Vital Signs
Temp Pulse Resp BP Pulse Ox
36.4 C 52 17 155/72 96
09/30/23 11:25 09/30/23 13:03 09/30/23 11:25 09/30/23 13:03 09/30/23 11:25
Lab Results
09/29/23 09:45
09/30/23 06:15
PT 13.4 Sec (11.4-14.6) 09/29/23 09:45
INR 1.04 09/29/23 09:45
APTT 26.9 Sec (23.4-35.0) 09/29/23 09:45
Sodium 138 mmol/L (135-145) 09/30/23 06:15
Potassium 3.9 mmol/L (3.5-5.1) 09/30/23 06:15
BUN 26 mg/dl (9-20) H 09/30/23 06:15
Glucose 93 mg/dl (70-99) 09/30/23 06:15
Calcium 10.0 mg/dl (8.4-10.2) 09/30/23 06:15
LDL Cholesterol, Calc 92 mg/dl 09/30/23 06:15
Vitamin B12 > 1000 pg/ml (239-931) H 09/29/23 09:45
Patient Allergies
lisinopril [Lisinopril] Allergy (Verified 09/29/23 09:52)
Swelling
octreotide Adverse Reaction (Verified 09/29/23 09:52)
Diarrhea, Vomiting
hospital linen Allergy (Uncoded 09/29/23 09:35)
Rash
--- NOTE | 2023-09-30 14:26 | W.PN.UPDATE ---
Update Note
Progress Note Update
As per discussion with VascSx and Neurology - will involve neuroSx for saccular aneurism findings and recurrent falls with lumbar pain
MRI lumbar to be repeated
--- NOTE | 2023-09-30 16:00 | CON.NS ---
Consultation
-
Date/Time Consultation Performed: 09/30/2023; 16:00
Performing Provider: Brodie
Chief Complaint
History of Present Illness
This is a neurosurgical consultation on a 78-year-old gentleman, who presented with acute onset of speech difficulties, confusion. He was seen as a stroke alert, and evaluated by neurology. His speech improved in the emergency room but he
continued to remain mildly confused. He has a past medical history of carcinoid with metastasis, followed by [place] [facility]. 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
he has ongoing chronic low back pain. Neurosurgery consulted for low back pain symptoms, as well as aneurysm.
Patient seen examined. at the bedside. Patient reports that while some symptoms have improved, he still feels some confusion. He also has ongoing balance issues and legs. This has been chronic in nature. He has tried physical therapy in
the past for his balance difficulties. He denies any sudden onset of headache with his associated symptoms. He reports that the symptoms came on over the course of approximately a day or at least several hours. He denies any vision changes or
difficulties or any redness of his eyes.
Review of Systems
-
10 point review of systems was performed, including constitutional, ENT, cardiovascular, respiratory, GI, , neurologic, endocrine, hematologic, and was negative, except for stated in HPI.
Medication and Allergies
Home Medications
Home Medications
�Medication �Instructions �Recorded
acetaminophen 325 mg tablet 650 mg PO DAILY Pain 12/04/22
(Tylenol)
allopurinol 300 mg tablet 300 mg PO DAILY Gout 12/04/22
calcitriol 0.25 mcg capsule 0.25 mcg PO QMWF Kidney Disease 12/04/22
carvedilol 25 mg tablet 25 mg PO BID Heart 12/04/22
Disease/Condition
potassium chloride 20 mEq 20 meq PO BID Electrolyte Repletion 12/04/22
tablet,extended release
calcium carbonate (Tums) 200 mg PO QIDPRN PRN gerd 09/29/23
cyanocobalamin (vitamin B-12) 1,000 mcg PO DAILY Supplement 09/29/23
1,000 mcg tablet
hydrochlorothiazide 25 mg tablet 25 mg PO DAILY Blood Pressure 09/29/23
loperamide 2 mg tablet 2 mg PO TIDPRN PRN diarrhea 09/29/23
therapeutic multivitamin 1 tab PO DAILY Supplement 09/29/23
Allergies
Allergies
Allergy/AdvReac Type Severity Reaction Status Date / Time
lisinopril [Lisinopril] Allergy Swelling Verified 09/29/23 09:52
octreotide AdvReac Diarrhea, Verified 09/29/23 09:52
Vomiting
hospital linen Allergy Rash Uncoded 09/29/23 09:35
Physical Exam
-
Exam:
Awake, alert, no apparent distress.
Cranial nerves II to XII are grossly intact.
Face is symmetric.
Facial sensation is symmetric bilaterally.
Speech is fluent, comprehension intact, repetition is normal.
Motor: 5/5 strength bilaterally in the upper extremities and lower extremities.
No evidence of pronator drift.
MRA of the head performed on 09/30/2023 demonstrates a focal area of outpouching along the lateral aspect of the left ICA, protruding laterally and posteriorly. Aneurysm appears to be originating from the cavernous portion of the left ICA. MRI of
the brain failed to demonstrate any obvious evidence of stroke or hemorrhage.
MRI of the lumbar spine performed in July 2022 demonstrates L2-3 spinal stenosis.
Assessment / Plan
-
This is a 78-year-old gentleman who presents with altered mental status, and neurological changes with concern for face drooping, aphasia. 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
from the cavernous portion.
This can be followed as an outpatient with cerebrovascular neurosurgery for evaluation as to whether or not he would benefit from surgical intervention by means of stent mediated embolization.
With regards to the proximal (extracranial) Left ICA fusiform dilatation, will defer to vascular surgery regarding this finding in the neck.
With regards to chronic low back pain, recommend obtaining new lumbar spine MRI scan. If it confirms that there is lumbar spinal stenosis and stable from previous MRI from July 2022, will likely recommend outpatient evaluation and workup for this.
Ultimately, patient will benefit initially from another course of physical therapy for this.
--- NOTE | 2023-09-30 16:35 | EEG.RPT ---
Electroencephalogram Report
Recording
Date of EE09/30/23
Type of EEG: Routine
Length of EEG recordin minutes
Done with Video Recording: Yes
Patient Status: Inpatient
Recording Conditions: Awake and Drowsy
Hyperventilation Performed: No
Photic Stimulation Performed: Yes
Report
LESS THAN 1 HOUR EEG REPORT
EEG INTERPRETATION:
Unremarkable EEG for age
CLINICAL CORRELATION:
A normal EEG does not rule out a diagnosis of epilepsy. If clinical suspicion for seizure persists, a prolonged recording capturing more wakefulness may be warranted.
Clinical correlation is advised.
METHODS:
A 21 channel digitized electroencephalogram (EEG) was performed in the [facility]. The 10/20 international system of electrode placement was used with ECG and lateral/vertical eye movements recorded. Persyst quantitative EEG
analysis was performed.
ELECTROENCEPHALOGRAPHER IMPRESSION(S):
Quality of study
Good
Background
Unremarkable, well maintained, medium amplitude alpha-frequency and unremarkable anterior-posterior voltage gradient, rarely seen.
With eye opening the background activity changed to a low voltage mixture of frequencies.
Sleep
Drowsiness present
Photic Stimulation
Did not activate the record
ECG
Normal sinus rhythm
--- NOTE | 2023-09-30 16:45 | CM ---
Reviewed chart, met with patient to obtain information/. Patient's was at bedside with patient's daughter and two granddaughters. Patient was at EEG. Patient's stated that she and patient just moved to [facility] living,
all one level, no steps to enter. Patient's described patient as independent with his ADLs, personal care, dressing and bathing. 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
Patient's denied any DME.
Patient has never had VN services. He has not been to a SNF in the past.
Patient has a prescription plan and uses, [facility].
Patient's PCP is, Alexei High.
Patient's is hoping that patient can return home right to his apartment when cleared for discharge. Will review indication on behalf of PT/OT/Medical staff.
Plan: Case management will continue to follow and assist with discharge planning. Will await indication from medical staff and call [facility] to determine if they can take him back at his current baseline.
[2023-09-30] MEDS: LIPITOR 40 MG PO (17:16)
[2023-09-30] MEDS: LOVENOX 40 MG SC (17:16)
[2023-09-30] MEDS: TUMS 1 TABLET PO (17:36)
[2023-10-01 03:23] VITALS: BP 121/77
[2023-10-01 07:26] VITALS: BP 146/78
[2023-10-01] MEDS: ZYLOPRIM 300 MG PO (09:16)
[2023-10-01] MEDS: VITAMIN B-12 1000 MCG PO (09:16)
[2023-10-01] MEDS: LOW STRENGTH ASPIRIN 81 MG PO (09:16)
[2023-10-01] MEDS: TYLENOL 650 MG PO (09:18)
[2023-10-01] MEDS: PLAVIX 75 MG PO (09:20)
[2023-10-01] MEDS: PROCARDIA XL (EXTENDED RELEASE) 30 MG PO (09:25)
[2023-10-01 10:55] VITALS: BP 104/64
[2023-10-01 11:30] VITALS: BP 130/83; PULSE 96; O2SAT 95
--- NOTE | 2023-10-01 13:45 | W.PN.NEURO.1 ---
Documented by User: Nohemy Dewey NP 10/01/23 14:14
Today's Communication / Plan
-
.
Neuro Assessment/Plan
Assessment
MONALISA CORDOVA is a 78 year old M with PMH of metastatic carcinoid tumor, HTN, HLD, B12 deficiency, hyperparathyroidism, CKD who has presented to the hospital on 09/29/23 with garbled speech, possible facial weakness with recent gait imbalance,
lumbar spondylosis with lumbar radiculopathy, B12 deficiency. He was not a candidate for TNK/IAT due to NIHSS 1, rapid improvement in symptoms.
-MRI brain 09/30/23: No MRI evidence for acute infarct or intracranial hemorrhage. Moderate white matter leukoaraiosis in both cerebral hemispheres. Mild diffuse cerebral and cerebellar volume loss. Mild to moderate ectasia of the right vertebral and
basilar arteries. 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
-MRA head/neck 09/30/23: Minimal atherosclerotic plaque in both proximal internal carotid arteries. 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 3 mm saccular aneurysm protruding laterally from the
cavernous segment of the left ICA. 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 Diffuse ectasia of the right vertebral and basilar arteries (6 mm diameter). Moderate hypoplasia of the A1 segment of the right anterior cerebral artery.
-EEG 09/30/23: Unremarkable EEG for age.
-MRI Lumbar Spine 10/01/23: Multilevel degenerative changes of the lumbar spine with endplate degenerative edema at L2-L3, overall similar appearance to prior MRI dated 07/2022
There is resultant severe canal stenosis at L2-L3 as well as a prominent left subarticular disc extrusion at L4-L5 with caudal migration and abutment of the transiting left L5 nerve root.
There is moderate bilateral neuroforaminal narrowing from L3-S1. Individual characterizations as above.
I. Metabolic disturbance, possibly related to hyperparathyroidism, possibly contributing to speech disturbance.
II. TIA possibly producing transient speech disturbance and facial droop. MRI Brain negative for stroke.
III. L2-L3 degenerative changes and severe canal stenosis. L4-L5 prominent disc extrusion impacting the left L5 nerve root. Possibly contributing to gait dysfunction.
IV. 3mm L ICA cavernous saccular aneurysm.
V. Hyperparathyroidism.
Plan
-Continue DAPT with aspirin 81mg and Plavix 75mg x21 days. After 21 days, discontinue Plavix and continue aspirin 81mg daily only, indefinitely.
-BP goal is normotension.
-Neurosurgery recommendation for lumbar spine findings.
-LDL goal <70. LDL is 92. Continue newly initiated atorvastatin 40mg daily.
-Goal normoglycemia, hbA1c is 5.2.
-NIHSS and neurological checks per unit guidelines.
-Provide patient with a stroke education packet.
-PT/OT/ST evaluations. Needs outpatient PT.
-DVT prophylaxis.
-Patient should follow-up with Neurology in about 4 weeks, may see the [facility] or Dr. Emery.
Subjective/Objective
Subjective Data
Date of Service: October 01, 2023
No acute events overnight. Patient and his report that his speech difficulty and right facial droop resolved two days ago and have not returned. He still endorses mild-moderate lower back pain and gait ataxia, frequent urination, and short term
memory issues.
Objective Data
Vital Signs
Temp Pulse Resp BP Pulse Ox
97.8 F 71 16 104/64 98
10/01/23 10:55 10/01/23 10:55 10/01/23 10:55 10/01/23 10:55 10/01/23 10:55
Lab Results
09/29/23 09:45
09/30/23 06:15
PT 13.4 Sec (11.4-14.6) 09/29/23 09:45
INR 1.04 09/29/23 09:45
APTT 26.9 Sec (23.4-35.0) 09/29/23 09:45
Sodium 138 mmol/L (135-145) 09/30/23 06:15
Potassium 3.9 mmol/L (3.5-5.1) 09/30/23 06:15
BUN 26 mg/dl (9-20) H 09/30/23 06:15
Glucose 93 mg/dl (70-99) 09/30/23 06:15
Calcium 10.0 mg/dl (8.4-10.2) 09/30/23 06:15
LDL Cholesterol, Calc 92 mg/dl 09/30/23 06:15
Vitamin B12 > 1000 pg/ml (239-931) H 09/29/23 09:45
Patient Allergies
lisinopril [Lisinopril] Allergy (Verified 09/29/23 09:52)
Swelling
octreotide Adverse Reaction (Verified 09/29/23 09:52)
Diarrhea, Vomiting
hospital linen Allergy (Uncoded 09/29/23 09:35)
Rash
LDL Level: >70, statin ordered
Review of Systems
-
History Source: Patient
EENT: Negative Blurry Vision, Decreased Vision or Swallowing Difficulty
Respiratory: Negative Cough or Trouble Breathing
Cardiac: Negative Chest Pain or Palpitations
Abdomen/GI: Negative Nausea
Genitourinary: Frequency and Urgency
Musculoskeletal: Back Pain
Neuro: Ataxia; Negative Dizzy, Headache, Weakness, Numbness, Tremors or Speech Problem
Physical Exam
-
General: Well Developed, Well Nourished and No Apparent Distress
Eyes: No Ptosis and PERRLA
HEENT: Normocephalic and Atraumatic
Neck: Full Range of Motion
Respiratory: No Dyspnea
GI: Non-distended
Extremities: No Clubbing, No Cyanosis and No Edema
Psych: Unremarkable
Extended Neurological Exam
Mood & Affect: Mood Unremarkable and Affect Unremarkable
Attention Span & Concentration: Awake, Alert, Interactive and No Difficulty with 2 Step Request
Memory: Negative Unremarkable (AAOx3, poor historian)
Tremor: Hand Tremor Absent and Head Tremor Absent
Involuntary Movement: None
Speech: Quality Unremarkable, Quantity Unremarkable and Rate of Production Unremarkable
Cranial Nerve II: Left Eye: Pupillary Reactivity Unremarkable, Pupillary Size Unremarkable and Visual Benavidez Intact
Cranial Nerve II: Right Eye: Pupillary Reactivity Unremarkable, Pupillary Size Unremarkable and Visual Benavidez Intact
Cranial Nerves III, IV, : Extraocular Movement: Extraocular Movement Full in all Directions
Cranial Nerve V: Facial Sensation: Intact to Light Touch
Cranial Nerve VII: Facial Symmetry: Normal Facial Symmetry
Cranial Nerve VIII: Hearing: Unremarkable Hearing to Normal Conversational Volume
Cranial Nerve XI: Shoulder Shrug: Unremarkable
Cranial Nerve XII: Tongue Protusion: Midline
Muscle Strength, Overall: Full Throughout
Muscle Bulk & Tone: Bulk Unremarkable and Tone Unremarkable
Pronator Drift: No Drift in Upper Extremities and No Drift in Lower Extremities
Deep Tendon Reflexes: Unremarkable Throughout
Cold Sensation: Reduced Mildly Distally
Touch Sensation: Double Simultaneous Stimulation Unremarkable
Coordination: [id number] Testing Unremarkable
Babinski Sign: Absent Bilaterally
Data Reviewed
-
CT Head: Report Reviewed and Image Reviewed
MRI Head: Report Reviewed and Image Reviewed
MRI Lumbar Spine: Report Reviewed and Image Reviewed
MRA Head: Report Reviewed and Image Reviewed
MRA Neck: Report Reviewed and Image Reviewed
Echocardiogram: Report Reviewed
EEG: Report Reviewed
Labs: Report Reviewed
Lipid Profile: Report Reviewed
HgbA1C: Report Reviewed
Reviewed with: Physician, Patient and Family
Medications
-
Active Medications
Generic Name Dose Route Start Last Admin
Trade Name Freq PRN Reason Stop Dose Admin
Acetaminophen 650 mg 09/29/23 12:27
Acetaminophen 650 Mg Rectal Suppository RECTAL 10/27/23 12:26
Q4HPRN PRN
FIORE, mild pain, or temp >100.4F
Acetaminophen 650 mg 09/29/23 12:27
Acetaminophen 325 Mg Tablet PO 10/27/23 12:26
Q4HPRN PRN
FIORE, mild pain, or temp >100.4F
Acetaminophen 650 mg 09/29/23 16:00 10/01/23 09:18
Acetaminophen 325 Mg Tablet PO 10/27/23 15:59 650 mg
DAILY JENN Administration
Allopurinol 300 mg 09/29/23 16:00 10/01/23 09:16
Allopurinol 300 Mg Tablet PO 10/27/23 15:59 300 mg
DAILY JENN Administration
Aspirin 81 mg 09/30/23 08:00 10/01/23 09:16
Aspirin 81 Mg Chewable Tablet PO 10/28/23 07:59 81 mg
DAILY JENN Administration
Atorvastatin Calcium 40 mg 09/29/23 18:00 09/30/23 17:16
Atorvastatin (Lipitor) 40 Mg Tablet PO 10/27/23 17:59 40 mg
QPM JENN Administration
Calcitriol 0.25 mcg 09/30/23 08:00 09/30/23 10:25
Calcitriol 0.25 Microgram Capsule PO 10/28/23 07:59 0.25 mcg
[id number] JENN Administration
Calcium Carbonate 1 tablet 09/29/23 15:04 09/30/23 17:36
Calcium Carbonate 500 Mg (Regular-Strength) Chew Tablet PO 10/27/23 15:03 1 tablet
QIDPRN PRN Administration
gerd
Clopidogrel Bisulfate 75 mg 09/30/23 08:00 10/01/23 09:20
Clopidogrel 75 Mg Tablet PO 10/28/23 07:59 75 mg
DAILY JENN Administration
Cyanocobalamin 1,000 mcg 09/29/23 16:00 10/01/23 09:16
Cyanocobalamin 1,000 Mcg Tablet PO 10/27/23 15:59 1,000 mcg
DAILY JENN Administration
Enoxaparin Sodium 40 mg 09/29/23 18:00 09/30/23 17:16
Enoxaparin Sodium 40 Mg/0.4 Ml Syringe SC 10/27/23 17:59 40 mg
QPM JENN Administration
Nifedipine 30 mg 09/30/23 12:00 10/01/23 09:25
Nifedipine 30 Mg Extended Release Tablet PO 10/28/23 11:59 30 mg
DAILY JENN Administration
Ondansetron HCl 4 mg 09/29/23 12:27
Ondansetron 4 Mg/2 Ml Vial IV 10/27/23 12:26
Q6HPRN PRN
NAUSEA/VOMITING
Sodium Chloride 0 flush 09/29/23 13:00
Sodium Chloride 0.9% (Flush) Syringe IV 10/27/23 12:59
PER PROTOCOL JENN
Home Medications
�Medication �Instructions �Recorded
acetaminophen 325 mg tablet 650 mg PO DAILY Pain 12/04/22
(Tylenol)
allopurinol 300 mg tablet 300 mg PO DAILY Gout 12/04/22
calcitriol 0.25 mcg capsule 0.25 mcg PO QMWF Kidney Disease 12/04/22
carvedilol 25 mg tablet 25 mg PO BID Heart 12/04/22
Disease/Condition
potassium chloride 20 mEq 20 meq PO BID Electrolyte Repletion 12/04/22
tablet,extended release
calcium carbonate (Tums) 200 mg PO QIDPRN PRN gerd 09/29/23
cyanocobalamin (vitamin B-12) 1,000 mcg PO DAILY Supplement 09/29/23
1,000 mcg tablet
hydrochlorothiazide 25 mg tablet 25 mg PO DAILY Blood Pressure 09/29/23
loperamide 2 mg tablet 2 mg PO TIDPRN PRN diarrhea 09/29/23
therapeutic multivitamin 1 tab PO DAILY Supplement 09/29/23
NIH Stroke Score
Subsequent NIH Scale
Date of Subsequent NIH Scale: 10/01/23
Time of Subsequent NIH Scale: 10:00
NIH Stroke Score
Level of Consciousness: 0 - Alert
LOC Questions: 0-Answers both correctly
LOC Commands: 0-Performs both correctly
Best Horizontal Gaze: 0-Normal
Visual Benavidez: 0=Normal, no visual loss
Facial Palsy: 0=Normal, symmetrical
Motor - Right Arm: 0=No drift 10 seconds
Motor - Left Arm: 0=No drift 10 seconds
Motor - Right Le-No drift 5 seconds
Motor - Left Le-No drift 5 seconds
Limb Ataxia: 0-Absent
Sensation: 0-Normal
Best Language: 0-No aphasia
Dysarthria: 0-Normal
Extinction and Inattention: 0-No abnormality
Total Score:: 0
Modified Coal (mRS) Score
Modified Coal Scale (mRS): No symptoms
Score: 0

Documented by User: Bennett Cheema MD 10/01/23 21:35
Today's Communication / Plan
-
Attending Note:
78 year old M with PMH of metastatic carcinoid tumor, HTN, HLD, B12 deficiency, hyperparathyroidism, CKD lumbar spondylosis stenosis and disc herniation with lumbar radiculopathy, B12 deficiency.
who has presented to the hospital on 09/29/23 with confusion slurred speech, facial weakness with chronic gait imbalance, that has resolved with patient amnestic of the admission
PLAN: Continue DAPT: Aspirin and plavix
Neurosurgical eval of lumbar disc herniation and spinal stenosis
PT/OT
Neuro Assessment/Plan
Assessment
MONALISA CORDOVA is a 78 year old M with PMH of metastatic carcinoid tumor, HTN, HLD, B12 deficiency, hyperparathyroidism, CKD who has presented to the hospital on 09/29/23 with garbled speech, possible facial weakness with recent gait imbalance,
lumbar spondylosis with lumbar radiculopathy, B12 deficiency. He was not a candidate for TNK/IAT due to NIHSS 1, rapid improvement in symptoms.
-MRI brain 09/30/23: No MRI evidence for acute infarct or intracranial hemorrhage. Moderate white matter leukoaraiosis in both cerebral hemispheres. Mild diffuse cerebral and cerebellar volume loss. Mild to moderate ectasia of the right vertebral and
basilar arteries. 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
-MRA head/neck 09/30/23: Minimal atherosclerotic plaque in both proximal internal carotid arteries. 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 3 mm saccular aneurysm protruding laterally from the
cavernous segment of the left ICA. 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 Diffuse ectasia of the right vertebral and basilar arteries (6 mm diameter). Moderate hypoplasia of the A1 segment of the right anterior cerebral artery.
-EEG 09/30/23: Unremarkable EEG for age.
-MRI Lumbar Spine 10/01/23: Multilevel degenerative changes of the lumbar spine with endplate degenerative edema at L2-L3, overall similar appearance to prior MRI dated 07/2022
There is resultant severe canal stenosis at L2-L3 as well as a prominent left subarticular disc extrusion at L4-L5 with caudal migration and abutment of the transiting left L5 nerve root.
There is moderate bilateral neuroforaminal narrowing from L3-S1. Individual characterizations as above.
I. Metabolic disturbance, related to hyperparathyroidism, resulting in confusion and slurred speech.
II. TIA producing transient speech disturbance and facial droop. MRI Brain negative for acute stroke.
III. L2-L3 degenerative changes with severe canal stenosis. L4-L5 prominent disc extrusion impacting the left L5 nerve root. Resulting in gait dysfunction.
IV. 3mm L ICA cavernous saccular aneurysm.
V. Hyperparathyroidism.
Plan
-Continue DAPT with aspirin 81mg and Plavix 75mg x21 days. After 21 days, discontinue Plavix and continue aspirin 81mg daily only, indefinitely.
-BP goal is normotension.
-Neurosurgery recommendation for lumbar spine findings.
-LDL goal <70. LDL is 92. Continue newly initiated atorvastatin 40mg daily.
-Goal normoglycemia, HbA1c is 5.2.
-NIHSS and neurological checks per unit guidelines.
-Provide patient with a stroke education packet.
-PT/OT/ST evaluations. Needs outpatient PT.
-DVT prophylaxis.
-Patient should follow-up with Neurology in about 4 weeks, may see the [facility] or Dr. Emery.
NIH Stroke Score
NIH Stroke Score
Total Score:: 0
Modified Coal (mRS) Score
Score: 0
[2023-10-01 15:09] VITALS: BP 116/71
--- NOTE | 2023-10-01 15:09 | W.PN.HOSP.TC ---
Today's Communication/Plan
-
pending final neuroSx reccs
Assessment / Plan
Assessment / Plan
78yo M with PMHx of carcinoid with metastases (followed by ), gout, HTN came with episode of confusion with concern for face drooping and aphasia, stroke code called and patient admitted for the stroke w/u. Was not a candidate for tPa. MRA
showed diminished blood flow in both posterior cerebral arteries, 3mm saccular aneurism L ICA, fusiform 8.9m aneurism of L ICA, diffuse ectasia of basilar and R vertebral artery. Severe hy[poplasia of L vertebral artery. No signs of CVA or brain
metastatic disease. Symptoms resolved on the next day. Bradycardia not seen with cessation of BB. BP wekll controlled. Depending on further plans from neuroSx - possible d/c if no further inpatient mgmt for lumbar spine findings, however patient has
no point tenderness over lumbar spine
A/P:
#confusion transient
possibly 2/2 hypoperfusion 2/2 significant intracranial vascular disease
Neurology to follow
ASA, statin, plavix for 21 day
control BP
#Bradycardia
hold BB
#Essential HTN
patient stopped HCTZ since he was feeling dizzy with it
Attempt alternative agents for BP control
#L ICA fusiform and saccular aneurism
VascSx consult: outpatient follow up
NeuroSx consult - outpatient follow up
#SPinal DJD with multilevel disck bulge
MRI lumbar: Multilevel degenerative changes of the lumbar spine with endplate degenerative edema at L2-L3, overall similar appearance to prior MRI dated 07/2022
There is resultant severe canal stenosis at L2-L3 as well as a prominent left subarticular disc extrusion at L4-L5 with caudal migration and abutment of the transiting left L5 nerve root.
There is moderate bilateral neuroforaminal narrowing from L3-S1. Individual characterizations as above.
NeuroSx for mgmt - if outpatient might d/c
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
Neuro to follow
#Chronic lower back pain
no LE paresthesia, no radiculopathy
already followed by PCP
#Vertigo
2/2 diminished posterior blood flow vs BPPV
Meclizine and outpatient ENT
#Carcinoid syndrome
follow up with outpatient oncology
DVT ppx hep
Full code
I have spent at least 60min reviewing chart, test results, communication with consultants and direct patient care
Anticipated Discharge: Within 24 hours
Subjective/Interval History
-
Date of Service: October 01, 2023
Objective Data
-
Vital Signs:
Vital Signs
Temp Pulse Resp BP Pulse Ox
98.4 F 75 17 116/71 97
10/01/23 15:09 10/01/23 15:09 10/01/23 15:09 10/01/23 15:09 10/01/23 15:09
I&O
09/30/23 10/01/23 10/02/23
06:59 06:59 06:59
Intake Total 480 / 480 810 / 810
Output Total 400 / 400
Balance 80 / 80 810 / 810
Review of Systems
-
History Source: Patient
All other systems: Reviewed and negative
Physical Exam
-
General: Well Developed, Well Nourished and No Apparent Distress
HEENT: Normocephalic and Atraumatic
Respiratory: Clear to Auscultation
Cardiac: Regular Rhythm
GI: Soft, Nontender and Nondistended
Genito-urinary: No Costovertebral Tender
Musculoskeletal: No Clubbing, No Cyanosis and No Edema
Skin: Warm
Neuro: Awake, Alert, Oriented, AO x 3 and No Motor Deficits
Psych: Calm
--- NOTE | 2023-10-01 17:13 | W.DCSUMMARY ---
Discharge Summary
Discharge Data
Date of Admission: 09/29/23
Date of Discharge: 10/01/23
-
Pending Results: No
Hospital Course
78yo M with PMHx of carcinoid with metastases (followed by ), gout, HTN came with episode of confusion with concern for face drooping and aphasia, stroke code called and patient admitted for the stroke w/u. Was not a candidate for tPa. MRA
showed diminished blood flow in both posterior cerebral arteries, 3mm saccular aneurism L ICA, fusiform 8.9m aneurism of L ICA, diffuse ectasia of basilar and R vertebral artery. Severe hy[poplasia of L vertebral artery. No signs of CVA or brain
metastatic disease. Symptoms resolved on the next day. Bradycardia not seen with cessation of BB. BP wekll controlled. Depending on further plans from neuroSx - possible d/c if no further inpatient mgmt for lumbar spine findings, however patient has
no point tenderness over lumbar spine. As per neuroSx review - no significant changes, no inpatient mgmt advised. Medically stable to be d/c home. Verbalized understanding of instructions. HCTZ stopped, Nifedipine added. Portassium supplement also
stopped since no more diuretic.
I have spent at least 39min preparing d/c
A/P:
#confusion transient
#Bradycardia
#Essential HTN
#L ICA fusiform and saccular aneurism
#SPinal DJD with multilevel disck bulge
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
#Chronic lower back pain
#Vertigo
#Carcinoid syndrome
Discharge Plan
-
Patient Disposition: Home (Routine Discharge)
Diet: Low Cholesterol
Activity: As tolerated
Driving Restrictions: As prior to admission
Other Services: PT
Referrals:
Alexei High DO [Family Provider] -
Dewayne Beltran MD [Active] - in four to six weeks
Jennie Calloway MD [Active] - in four to six weeks
Louisa Emery DO [Active] - in three to four weeks
Dagoberto Marie MD [Active] - in one to two months
Additional Discharge Medication Instructions: COntinue Lipitor and Aspirin indefinitely
Stop Plavix after 20 days
Prescriptions:
New
atorvastatin 40 mg Tablet
40 mg PO QPM Qty: 30 0RF
aspirin 81 mg Tablet,Chewable
81 mg PO DAILY Qty: 60 0RF
nifedipine 30 mg Tablet Extended Release
30 mg PO DAILY Qty: 30 0RF
clopidogrel 75 mg Tablet
75 mg PO DAILY Qty: 20 0RF
meclizine 12.5 mg tablet
12.5 mg PO TID PRN (Reason: dizziness) Qty: 30 0RF
Continued
carvedilol 25 mg Tablet
25 mg PO BID
acetaminophen [Tylenol] 325 mg Tablet
650 mg PO DAILY
allopurinol 300 mg Tablet
300 mg PO DAILY
calcitriol 0.25 mcg Capsule
0.25 mcg PO QMWF
loperamide 2 mg Tablet
2 mg PO TIDPRN PRN (Reason: diarrhea)
cyanocobalamin (vitamin B-12) 1,000 mcg Tablet
1,000 mcg PO DAILY
therapeutic multivitamin Tablet
1 tab PO DAILY
calcium carbonate [Tums] 200 mg calcium (500 mg) Tablet,Chewable
200 mg PO QIDPRN PRN (Reason: gerd)
Discontinued
potassium chloride 20 mEq Tablet Extended Release
20 meq PO BID
hydrochlorothiazide 25 mg Tablet
25 mg PO DAILY
Patient Comments:
Patient stopped due to making him dizzy
Discharge Orders:
Discharge Patient (As Directed); Ordered 10/01/23
Ordered By: Nikhil Nichols
Discharge Date and Time
Print Language: GREENLANDIC
[2023-10-01] MEDS: LIPITOR 40 MG PO (18:01)
[2023-10-01 18:41] LABS: Syphilis/T. pallidum Ab Reflex Negative (Negative)
== END 2023-10-01 18:24 | disposition home or self-care (01) | DRG 92 ==
LOC: 3 WEST ACU 11:32
PROVIDERS: ADMITTING PHYSICIAN Family Medicine; ATTENDING PHYSICIAN Internal Medicine; CONSULT PHYSICIAN Neurological Surgery; CONSULT PHYSICIAN Psychiatry & Neurology Neurology; EMERGENCY PHYSICIAN Emergency Medicine; FAMILY PHYSICIAN Family Medicine; REFERRING PHYSICIAN Internal Medicine Geriatric Medicine
DX: R47.1 Dysarthria and anarthria (principal); E34.0 Carcinoid syndrome; I67.1 Cerebral aneurysm, nonruptured; R47.01 Aphasia; R29.810 Facial weakness; E78.00 Pure hypercholesterolemia, unspecified; I12.9 Hypertensive chronic kidney disease with stage 1 through stage 4 chronic kidney disease, or unspecified chronic kidney disease; N18.30 Chronic kidney disease, stage 3 unspecified; E21.3 Hyperparathyroidism, unspecified; E53.8 Deficiency of other specified B group vitamins; R00.1 Bradycardia, unspecified; R26.89 Other abnormalities of gait and mobility; M47.26 Other spondylosis with radiculopathy, lumbar region; K21.9 Gastro-esophageal reflux disease without esophagitis; R42 Dizziness and giddiness; R41.82 Altered mental status, unspecified; M10.9 Gout, unspecified; Z88.8 Allergy status to other drugs, medicaments and biological substances; Z90.49 Acquired absence of other specified parts of digestive tract; Z79.899 Other long term (current) drug therapy; Z85.030 Personal history of malignant carcinoid tumor of large intestine
CPT/HCPCS: 70450; 70544; 70548; 70551; 72110; 72148; 80048; 80061; 81003; 82140; 82607; 82746; 82962; 83036; 83735; 84439; 84443; 85025; 85610; 85652; 85730; 86140; 86780; 92610; 93005; 93306; 95816; 97163; 97167; 97530; 99291; A9585

== ENCOUNTER → 2023-10-09 08:54 | Outpatient (REF) | payer MEDICARE, OTHER, SELFPAY | LOC: HWRAD 08:54 | PROVIDERS: ATTENDING PHYSICIAN Internal Medicine Endocrinology, Diabetes & Metabolism; FAMILY PHYSICIAN Internal Medicine | DX: N25.81 Secondary hyperparathyroidism of renal origin (principal); M25.811 Other specified joint disorders, right shoulder; M81.0 Age-related osteoporosis without current pathological fracture | CPT/HCPCS: 77080; 77081 ==

== ENCOUNTER → 2023-11-12 11:24 | Outpatient (REF) | payer MEDICARE, OTHER, SELFPAY ==
[2023-11-12 12:34] LABS: % Basophils 0.4 % (0-2); % Eosinophils 1.6 % (0-6); % Immature Granulocytes 0.5 % (0-0.5); % Lymphocytes 13.9 % (20.5-51.1); % Monocytes 6.5 % (1.7-9.3); % Neutrophils 77.1 % (42.2-75.2); Absolute Eosinophils 0.2 10^3/uL (0-0.7); Absolute Immature Granulocytes 0.1 10^3/uL (0-0.05); Absolute Lymphocytes 1.5 10^3/uL (1.2-3.4); Absolute Monocytes 0.7 10^3/uL (0.1-0.6); Absolute Neutrophils 8.2 10^3/uL (1.4-6.5); Hematocrit 42.1 % (39.0-52.0); Hemoglobin 14.1 g/dL (13.0-18.0); Mean Corp Hgb Conc. 33.5 g/dL (33.0-37.0); Mean Corpuscular Hgb 31.2 pg (27.0-31.0); Mean Corpuscular Volume 93.1 fL (80.0-94.0); Mean Platelet Volume 9.6 fL (7.4-10.4); Nucleated Red Blood Cells % 0 % (-); Platelet Count 284 10^3/uL (130-400); Red Blood Cell Count 4.52 10^6/uL (4.70-6.10); Red Cell Dist. Width 12.8 % (11.5-14.5); White Blood Cell Count 10.7 10^3/uL (4.8-10.8)
[2023-11-12 13:17] LABS: ALT (SGPT) 17 U/L (0-50); AST (SGOT) 21 U/L (17-59); Albumin 4.4 g/dl (3.5-5.0); Alkaline Phosphatase 91 U/L (38-126); Direct Bilirubin 0.3 mg/dl (0.0-0.4); Iron 61 ug/dl (49-181); Total Bilirubin 0.6 mg/dl (0.2-1.3); Total Protein 6.8 g/dl (6.3-8.2)
[2023-11-12 13:27] LABS: Percent Saturation 22 % (20-50); Total Iron Binding Capacity 277 ug/dl (261-462)
[2023-11-12 13:44] LABS: Ferritin 98.3 ng/ml (17.9-464.0)
[2023-11-12 14:15] LABS: Folate 13.2 ng/ml (2.76-20); Vitamin B12 622 pg/ml (239-931)
[2023-11-14 17:32] LABS: Chromogranin A 146 ng/mL (0-187)
== END ==
LOC: REG 11:24
PROVIDERS: ATTENDING PHYSICIAN Internal Medicine Hematology & Oncology; FAMILY PHYSICIAN Internal Medicine; REFERRING PHYSICIAN Specialist
DX: C7A.098 Malignant carcinoid tumors of other sites (principal); D50.9 Iron deficiency anemia, unspecified; I72.0 Aneurysm of carotid artery; R41.82 Altered mental status, unspecified; E34.00 Carcinoid syndrome, unspecified
CPT/HCPCS: 36415; 80076; 82607; 82728; 82746; 83540; 83550; 83921; 85025; 86316

== ENCOUNTER → 2023-11-22 09:10 | Day surgery (SDC) | payer MEDICARE, OTHER, SELFPAY ==
[2023-11-22 10:56] LABS: Hematocrit 41.9 % (39.0-52.0); Hemoglobin 14.1 g/dL (13.0-18.0); Mean Corp Hgb Conc. 33.7 g/dL (33.0-37.0); Mean Corpuscular Hgb 31.1 pg (27.0-31.0); Mean Corpuscular Volume 92.3 fL (80.0-94.0); Mean Platelet Volume 9.5 fL (7.4-10.4); Platelet Count 249 10^3/uL (130-400); Red Blood Cell Count 4.54 10^6/uL (4.70-6.10); White Blood Cell Count 7.3 10^3/uL (4.8-10.8)
[2023-11-22 11:08] LABS: APTT 30.1 Sec (23.4-35.0); INR 1.03; PT 13.3 Sec (11.4-14.6)
[2023-11-22 11:46] LABS: ALT (SGPT) 19 U/L (0-50); AST (SGOT) 24 U/L (17-59); Albumin 4.5 g/dl (3.5-5.0); Alkaline Phosphatase 113 U/L (38-126); Blood Urea Nitrogen 21 mg/dl (9-20); Calcium 10.6 mg/dl (8.4-10.2); Carbon Dioxide 26 mmol/L (22-30); Chloride 104 mmol/L (98-107); Glucose 83 mg/dl (70-99); Sodium 144 mmol/L (135-145); Total Bilirubin 1.1 mg/dl (0.2-1.3); eGFR 52.09
== END ==
LOC: SDSPAT 09:10
PROVIDERS: ATTENDING PHYSICIAN Surgery; FAMILY PHYSICIAN Internal Medicine; OTHER PHYSICIAN Student in an Organized Health Care Education/Training Program
DX: Z01.812 Encounter for preprocedural laboratory examination (principal)
CPT/HCPCS: 80053; 36415; 85027; 85610; 85730

== ENCOUNTER 2023-11-26 06:25 | Day surgery (SDC) | payer MEDICARE, OTHER, SELFPAY ==
[2023-11-22 09:42] VITALS: BMI 25.9
[2023-11-26] VITALS (10 sets, daily range): BP systolic 112–155; BP diastolic 68–81; BMI 25.9
[2023-11-26] MEDS: TYLENOL 1000 MG PO (11:31)
[2023-11-26] MEDS: NEURONTIN 300 MG PO (11:32)
[2023-11-26] MEDS: HEPARIN 5000 UNITS SC (11:33)
[2023-11-26] MEDS: NORMOSOL-R/PLASMALYTE-A 1000 IV (11:42)
[2023-11-26 13:05] LABS: Turbo PTH 191.7 pg/ml (13.6-85.8)
--- NOTE | 2023-11-26 13:40 | OR.RPT ---
Operative Report
Operative Report
Date of Operation: November 26, 2023
Preoperative Diagnosis: �Parathyroid hyperparathyroidism - E210
Postoperative Diagnosis: Same
Surgeon: Sanford Robles M.D.
Operation: Minimally Invasive Left Inferior Parathyroidectomy - 20644
Anesthesia: GET
Estimated Blood Loss: 3 cc
Drains: None
Specimen: �Left inferior neck nodule, rule out parathyroid adenoma
Complications: �None
Procedure:
The patient was taken to the operating room and placed in the usual supine position. After adequate general endotracheal anesthesia was established, the patient's neck was extended, prepped, and draped in the typical sterile fashion. A 4 cm
transcervical incision was made two fingerbreadths above the sternal notch. The skin incision was made with the #15 blade, and this was taken through the skin into the subcutaneous tissue. The underlying platysma muscle was divided, and subplatysmal
flaps were created superiorly to the thyroid cartilage and inferiorly to the sternal notch. Strap muscles were identified and at the midline.
The attention was turned to the left side of the neck. The left thyroid lobe was mobilized medially. During this process, the left recurrent laryngeal nerve was identified and preserved throughout the surgery. The left lower neck nodule was
identified and noted to be enlarged, excised, and sent to the pathology department, which showed a hypercellular parathyroid gland. The intraoperative PTH levels normalized.
After obtaining adequate hemostasis, the strap muscles were reapproximated with #3-0 Vicryl in a running fashion. The platysma muscle was reapproximated with #3-0 Vicryl in an interrupted fashion, and the skin was approximated with #4-0 Monocryl in
a running subcuticular fashion. The Steri-Strips and sterile dressings were placed. The patient tolerated the procedure well. The final instrument, needle, and sponge counts were correct. The patient was extubated and transferred to the PACU.
[2023-11-26 13:48] LABS: Turbo PTH 79.1 pg/ml (13.6-85.8)
== END 2023-11-26 17:00 | disposition home or self-care (01) ==
LOC: SDS 06:25
PROVIDERS: ATTENDING PHYSICIAN Surgery; FAMILY PHYSICIAN Internal Medicine
DX: E21.0 Primary hyperparathyroidism (principal)
CPT/HCPCS: 60500; 88305; 88332; 83970; 88331

== ENCOUNTER → 2024-03-10 15:34 | Outpatient (REF) | payer MEDICARE, OTHER, SELFPAY | LOC: HWRCS 15:34 | PROVIDERS: ATTENDING PHYSICIAN Psychiatry & Neurology Neurology; FAMILY PHYSICIAN Internal Medicine | DX: Z86.73 Personal history of transient ischemic attack (TIA), and cerebral infarction without residual deficits (principal); G45.9 Transient cerebral ischemic attack, unspecified | CPT/HCPCS: 93306 ==

== ENCOUNTER → 2024-03-13 12:32 | Outpatient (REF) | payer MEDICARE, OTHER, SELFPAY | LOC: REG 12:32 | PROVIDERS: ATTENDING PHYSICIAN Specialist; FAMILY PHYSICIAN Internal Medicine | DX: N40.1 Benign prostatic hyperplasia with lower urinary tract symptoms (principal) | CPT/HCPCS: 36415; 84270; 84402; 84403 ==

== ENCOUNTER → 2024-03-26 08:53 | Outpatient (REF) | payer MEDICARE, OTHER, SELFPAY | LOC: WDC 08:53 | PROVIDERS: ATTENDING PHYSICIAN Internal Medicine | DX: N63.10 Unspecified lump in the right breast, unspecified quadrant (principal) | CPT/HCPCS: 76642; 77062; 77066 ==

== ENCOUNTER → 2024-04-30 11:25 | Outpatient (REF) | payer MEDICARE, OTHER, SELFPAY | LOC: RAD 11:25 | PROVIDERS: ATTENDING PHYSICIAN Surgery Vascular Surgery; FAMILY PHYSICIAN Internal Medicine | DX: I72.0 Aneurysm of carotid artery (principal) | CPT/HCPCS: 93880 ==

== ENCOUNTER 2024-05-19 23:03 | Observation (INO) | payer MEDICARE, OTHER, SELFPAY ==
[2024-05-19 16:15] VITALS: BP 166/113
[2024-05-19 16:57] LABS: % Basophils 0.2 % (0-2); % Eosinophils 0.4 % (0-6); % Immature Granulocytes 0.3 % (0-0.5); % Lymphocytes 6.5 % (20.5-51.1); % Monocytes 12.1 % (1.7-9.3); % Neutrophils 80.5 % (42.2-75.2); Absolute Lymphocytes 0.6 10^3/uL (1.2-3.4); Absolute Monocytes 1.1 10^3/uL (0.1-0.6); Absolute Neutrophils 7.4 10^3/uL (1.4-6.5); Mean Corpuscular Hgb 31.7 pg (27.0-31.0); Mean Corpuscular Volume 93.1 fL (80.0-94.0); Mean Platelet Volume 9.7 fL (7.4-10.4); Nucleated Red Blood Cells % 0 % (-); Platelet Count 157 10^3/uL (130-400); Red Blood Cell Count 5.05 10^6/uL (4.70-6.10); Red Cell Dist. Width 13.2 % (11.5-14.5); White Blood Cell Count 9.2 10^3/uL (4.8-10.8)
[2024-05-19 17:14] LABS: COVID-19 Antigen Positive (Negative)
[2024-05-19 17:19] LABS: ALT (SGPT) 26 U/L (0-50); AST (SGOT) 21 U/L (17-59); Albumin 4.1 g/dl (3.5-5.0); Alkaline Phosphatase 120 U/L (38-126); Blood Urea Nitrogen 22 mg/dl (9-20); Carbon Dioxide 26 mmol/L (22-30); Chloride 103 mmol/L (98-107); Glucose 120 mg/dl (70-99); Potassium 3.9 mmol/L (3.5-5.1); Sodium 139 mmol/L (135-145); Total Bilirubin 1.1 mg/dl (0.2-1.3); Total Protein 6.8 g/dl (6.3-8.2); eGFR 56.93
--- NOTE | 2024-05-19 19:38 | ED.GENMED ---
History of Present Illness
General
Chief Complaint: Dizziness
Source: patient, spouse and family
Exam Limitations: none
Time Seen by Provider: 05/19/24 19:21
Nursing documentation reviewed up to this point in time: agreed with
History of Present Illness
History of Present Illness:
78 yo male presents to the emergency department c/o dizziness, lightheadedness, falls, leg weakness, headache and vomiting. Weakness in his legs is worsened over the past several days. He has a history of TIA.
Past History
Past History
ED Past Medical History: HTN, Hypercholesterolemia, Other (Remote history of carcinoid ) and Other (History of kidney stones )
ED Past Surgical History: Appendectomy and Bowel resection
Social History
Tobacco: Non-smoker
Alcohol: Occasional
Personal:
Living: with family
Employment: Retired
Family History
Family History: Negative Diabetes or CAD
Review of Systems
Review of Systems
Allergies reviewed?: Yes
All Other Systems: Not applicable
Constitutional: Reports fatigue
EENT: Reports no symptoms
Respiratory: Reports cough
Cardiac: Reports no symptoms
ABD/GI: Reports vomiting
: Reports no symptoms
Musculoskeletal: Reports no symptoms
Skin: Reports no symptoms
Neurological: Reports dizzy, headache and weakness
Endocrine: Reports no symptoms
Hematologic/Lymphatic: Reports no symptoms
Psychiatric: Reports no symptoms
Phy Exam
Physical Exam
Physical Exam:
Physical Exam
General: no apparent distress, not acutely ill
Neck: supple. no meningeal signs. normal posterior pharynx
Heart: s1/s2 tachycardia, regular rhythm, no murmur. equal radial
pulses.
HEENT: Pupils equal round reactive to light, EOMI
Lungs: no acute respiratory distress. clear bilaterally, cough
Abdomen: normal bowel sounds. not tender. no CVAT
Neuro: alert and oriented. no focal neurological deficits cranial nerves II through XII intact
Skin: no rash
Psychiatric: well kept. interactive and cooperative
Extremities: no edema. no calf tenderness. negative homans. good distal pulses
Course
Orders/Labs/Results
Orders:
Orders
05/19/24 16:19
EKG [Electrocardiogram (*1)] Urgent
Reason for Study: Tachycardia
EKG- Treatment ONCE
05/19/24 16:45
COVID-19 Antigen Urgent
Source: Nasal Swab
Complete Blood Count/With Diff Urgent
Comprehensive Metabolic Panel Urgent
Influenza A+B Rapid Molecular Urgent
SUZANNE Source: Nasal Swab
Specimen Description:
05/19/24 17:29
CR Chest - 2 Views Urgent
Comment:
Reason For Exam: hypoxia
05/19/24 19:38
0.9% Sodium Chloride 1000 ml [Nss] 1,000 ml IV BOLUS
05/19/24 19:39
CT Head W/o Iv Contrast Urgent
Comment:
Reason For Exam: headache, fall
05/19/24 22:52
Admit/Transfer Patient As Directed
Co-Sign Provider:
Level of Care: Observation services
Assign to:: Medical/Surgical
Physician / Group: Kulwinder
Diagnosis: COVID-19, Weakness / Fall
PRN Pain Medication Management As Directed
May give lesser potent ordered pain med per pt: Yes
preference::
Protocol:: Medication orders for pain may be administered in a
manner that supports deferring to patient preference
when the pt is:
- Requesting an ordered lesser potent pain medication.
Least to most potent pain medications are defined
as: acetaminophen < NSAID < tramadol < opioids
(morphine, oxycodone, hydromorphone).
- Requesting a lesser dose of the same medication IF
ORDERED.
- Requesting a less intrusive route of administration
if both routes are prescribed by the provider (PO <
IV).
05/19/24 22:53
Code Status As Directed
Resuscitation Status: Full Code
05/20/24 00:32
Acetaminophen [Tylenol] 650 mg PO Q4HPRN PRN
Albuterol [ProAIR HFA INHALER] 2 puff INH R Q4HPRN PRN
Lactated Ringers [Lr] 1,000 ml IV 80 mls/hr
05/20/24 00:32
TSH Reflex To Free T4 Routine
Activity As Directed
Activity Level: Ambulate
With Assistance
Bladder Scan As Directed
Follow Bladder Retention/Intermittent Cath Algorithm?: Yes
PRN if no void in __ hours: 6
Frequency: Per Retention Algorithm
If Bladder Scan Result >: 400
then:: Straight cath
I/O [Intake/ Output] As Directed
Frequency: Per unit guidelines
Orthostatic Vital Signs As Directed
Orthostatic VS Frequency: BID
Pneumatic Compression Sleeves As Directed
Type: Knee high
Precautions As Directed
Type of Precautions: Droplet
Straight Cath As Directed
Frequency: Per Retention Algorithm
Additional Instructions: straight cath as needed per acute urinary retention algorithm for 24 hrs
Additional Instructions: for bladder scan greater than 400 mL
Vital Signs As Directed
Frequency: Per unit guidelines
Weight As Directed
Frequency: Daily
Oxygen Therapy [O2 Therapy] [RESP] Routine
Titrate/Wean O2 to maintain O2 sat greater than (%): 94
PT Consult [Pt Eval And Treat] Routine
Treatment: Vestibular eval
Activity Level: Ambulate
With Assistance
DX Deep Vein Thrombosis Video Routine
05/20/24 Breakfast
Regular
At Your Request: Full Participation
Basic Metabolic Panel IN AM
Complete Blood Count/No Diff IN AM
05/20/24 08:00
Allopurinol [Zyloprim] 300 mg PO DAILY
Carvedilol [Coreg] 6.25 mg PO BID
05/20/24 18:00
Enoxaparin Sodium [Lovenox] 40 mg SC QPM
05/20/24 22:00
Aspirin Low Dose EC [Aspir Low (Enteric Coated)] 81 mg PO HS
Atorvastatin [Lipitor] 40 mg PO HS
05/20/24 22:52
Calcitriol [Rocaltrol] 0.25 mcg PO MOWEFR
Abnormal Lab Results
05/19/24
16:45
MCH 31.7 H pg
(27.0-31.0)
Absolute Neuts (auto) 7.4 H 10^3/uL
(1.4-6.5)
Absolute Lymphs (auto) 0.6 L 10^3/uL
(1.2-3.4)
Absolute Monos (auto) 1.1 H 10^3/uL
(0.1-0.6)
Neutrophils % 80.5 H %
(42.2-75.2)
Lymphocytes % 6.5 L %
(20.5-51.1)
Monocytes % 12.1 H %
(1.7-9.3)
BUN 22 H mg/dl
(9-20)
Glucose 120 H mg/dl
(70-99)
SARS-CoV-2 Antigen Positive A
(Negative)
05/19/24 16:45
05/19/24 16:45
Vital Signs
Initial and Last Documented VS:
Initial Vital Signs
Temp Pulse Resp BP Pulse Ox
98.4 F 103 16 166/113 91
05/19/24 16:15 05/19/24 16:15 05/19/24 16:15 05/19/24 16:15 05/19/24 16:15
Last Documented Vital Signs
Temp Pulse Resp BP Pulse Ox
98.4 F 74 19 170/90 92
05/19/24 16:15 05/19/24 23:30 05/19/24 23:30 05/19/24 23:13 05/19/24 23:15
MDM/Problems Addressed
Differential Diagnosis Includes:
COVID, electrolyte abnormality, intracranial hemorrhage
MDM/Problems Addressed:
78-year-old male with COVID, weakness, inability to ambulate.
Chronic conditions affecting care: HTN
Acute Exacerbation and/or Progression of Chronic Illness: HTN
*Radiology
Radiology exam reviewed: radiology read reviewed (ct head nad, cxr nad)
*Pulse Oximetry
Patient hypoxic: no
*EKG
Interpreted by ED Provider?: Yes
EKG Intrepretation Date: 05/19/24
EKG Intrepretation Time: 16:26
Interpretation: abnormal
Comparison EKG: changes noted
Heart Rate: 94
Rate: normal
Rhythm: sinus
[place]: normal axis
Interval: normal interval
QRS Pattern: left vent hypertrophy
Ischemia: no ischemia
*Backwinder Interpretation
Rate: normal
Interpretation: normal
Heart Rate: 95
Rhythm: sinus
*Critical Care Note
Total Time (30-74mins, 75-104mins- exclusive of procedures): Not Applicable
Data Reviewed
Review of Other/Old Records Reveals: Labs
Source: records
Patient Management
Social determinants of health affecting care: Living situation
Discussion with other providers: Hospitalist
Escalation/DeEscalation of care consider admission/obs:
admit indicated
ED Attending Note
-
Portions of this chart may have been created with voice recognition software.� Occasional wrong word or��sound alike� substitutions may have occurred due to the inherent limitations of voice recognition software.
Discharge Plan
Departure
Patient Disposition: Admit
Date of Disposition: 05/19/24
Time of Disposition: 22:15
Admit to: Telemetry
Presentation/result/management discussed w/ accepting MD/DO: Hospitalist
Patient with high blood pressure during this ER visit?: Yes
Condition: Good
Covid-19: Confirmed COVID-19
Discharge Problem:
COVID-19, Weakness, Dizziness, Ambulatory dysfunction
Interventions
Interventions:
*Risk Screen - Suicide Last Done: 05/19/24 16:15
*General Assessment Last Done: 05/19/24 16:15
*Neglect/Abuse Screening Last Done: 05/20/24 01:14
*ED- Fall Risk Assessment Last Done: 05/19/24 16:15
*ED COVID-19 Vaccine History Last Done: 05/19/24 16:15
ED- Neurological Assessment Last Done: 05/19/24 20:00
ED- Cardiac Assessment Last Done: 05/19/24 20:00
[2024-05-19] MEDS: NSS 1000 IV (19:51)
[2024-05-19 19:54] VITALS: BP 162/107
--- NOTE | 2024-05-19 22:59 | HPS.HSE ---
Family Physician
-
Family Physician: Niki Kiser
Chief Complaint
-
Weakness / Fall
History of Present Illness
Patient is a 78y M with PMH significant for hypertension, CKD and carcinoid tumor who presents to ED complaining of weakness and a fall at home today. History obtained from patient and his at the bedside. Patient has reportedly had issues
with unsteady gait / balance and back pain for the past several months. He has had extensive evaluations thus far including MRI of the brain and spine, MT scan, etc - none of which have resulted in any formal diagnosis. Today patient was walking
in his bedroom when his legs 'gave out' and he fell. Patient states that he may have slightly bumped his head on the carpeted floor. He did not lose consciousness. He denies any prodrome of lightheadedness / dizziness.
Patient had N/V after the fall - which they note is very unusual for him. He has had issues with chronic diarrhea and is being followed by [place] for his carcinoid syndrome. They have a PET scan scheduled for Saturday.
Patient denies any recent cough, sore throat, fevers / chills, etc. No known sick contacts. He has had multiple vaccinations v SARS-CoV-2. Most recent was Fall 2023.
Patient was brought to the ED for further evaluation and found to be positive for COVID-19.
Medical History
Past Medical History
Past Medical History: Reports Other
Additional Past Medical History:
Carcinoid Tumor s/p Resection
Hyperparathyroidism
Hypertension
CKD III
GERD
CVA / TIA
Nephrolithiasis
Past Surgical History: Reports Other
Additional Past Surgical History:
Parathyroidectomy
Carcinoid Tumor Resection (ileum)
Appendectomy
Social History
Tobacco: Non-smoker
Alcohol: None
Drug: None
Family History
Family History: Not pertinent
Allergies / Home Medications
Allergies reflects when Allergies were last updated in [facility].
Home Medications with original date entered in [facility]
Allergy/Medication List:
Allergies
Allergy/AdvReac Type Severity Reaction Status Date / Time
lisinopril [Lisinopril] Allergy Swelling Verified 11/26/23 11:21
octreotide AdvReac Diarrhea, Verified 11/26/23 11:21
Vomiting
hospital linen Allergy Rash Uncoded 11/26/23 11:21
Home Medications
allopurinol 300 mg tablet 300 mg PO DAILY Gout 12/04/22
calcitriol 0.25 mcg capsule 0.25 mcg PO MOWEFR Kidney Disease 12/04/22
calcium carbonate (Tums) 200 mg PO HSPRN PRN gerd 09/29/23
cyanocobalamin (vitamin B-12) 1,000 mcg tablet 1,000 mcg PO DAILY Supplement 09/29/23
aspirin 81 mg tablet,delayed release 81 mg PO HS 05/19/24
atorvastatin 40 mg tablet 40 mg PO HS 05/19/24
calcium 600 mg (as carbonate)-vitamin D3 5 mcg (200 unit) tablet 1 tab PO DAILY 05/19/24
carvedilol 6.25 mg tablet 6.25 mg PO BID 05/19/24
therapeutic multivitamin 1 tab PO DAILY 05/19/24
Review of Systems
-
History Source: Patient
A 12 point ROS was completed and negative except as noted: Yes
Constitutional: Reports Fatigue; Denies Fever or Chills
Respiratory: Denies Cough or Trouble Breathing
Cardiac: Denies Chest Pain or Palpitations
Abdomen/GI: Reports Diarrhea; Denies Abdominal Pain, Nausea or Vomiting
: Denies Dysuria or Flank Pain
Musculoskeletal: Denies Joint Pain or Edema
Neurological: Reports Weakness; Denies Dizzy or Headache
Psych: Denies Depression or Anxiety
Physical Exam
Vital Signs
Vital Signs
Temp Pulse Resp BP Pulse Ox
98.4 F 75 23 162/107 92
05/19/24 16:15 05/19/24 21:51 05/19/24 21:51 05/19/24 19:54 05/19/24 21:51
Physical Exam
General: Other (78y M in no acute distress.)
HEENT: Moist mucous membranes and PERRLA
Respiratory: Clear; No Wheezes, Rales or Rhonchi
Cardiac: S1/S2 and Regular Rhythm; No Murmur
GI: Soft, Non Tender, Non Distended and Normal Bowel Sounds
Musculoskeletal: No Clubbing, No Cyanosis and No Edema
Neuro: AO x 3 and Nonfocal/grossly intact
Laboratory Results
-
05/19/24 16:45
05/19/24 16:45
Laboratory Results
Total Bilirubin 1.1 mg/dl (0.2-1.3) 05/19/24 16:45
AST 21 U/L (17-59) 05/19/24 16:45
ALT 26 U/L (0-50) 05/19/24 16:45
Alkaline Phosphatase 120 U/L (38-126) 05/19/24 16:45
Impression/Plan
-
A/P: Patient is a 78y M with PMH significant for carcinoid tumor, HTN and CKD who presents to ED for evaluation after fall at home.
COVID-19
Hypoxemic Respiratory Insufficiency secondary to the above
Generalized Weakness secondary to the above
Fall at Home - multifactorial
- Observe overnight for further evaluation and treatment.
- Mildly hypoxemic in the ED with room air SpO2 of 91%.
- No fever, cough, etc.
- Supportive care. O2 / albuterol MDI if needed.
- Follow proper precautions.
- Patient / family not interested in Paxlovid at this time.
- Follow for any new / worsening symptoms.
Ambulatory Dysfunction
Dizziness
- This has been a chronic issue over the past several months - exacerbated by acute illness / COVID.
- PT / vestibular therapy evaluation.
- Recent MT scan without evidence of Parkinson's disease.
- Follow-up with Neurology as an outpatient (sees Dr. Emery).
Benign Hypertension
- Stable. Continue carvedilol.
CKD III
- Stable. Renal function at / near known baseline.
- Follow for any changes.
ASCVD / CVA / TIA
- No new focal neurologic complaints.
- Recent episode of amaurosis fugax following CT scan @ [facility].
- Continue ASA, statin, etc.
Hyperparathyroidism
- s/p parathyroidectomy. Continue calcitriol.
Carcinoid Syndrome
- Chronic diarrhea and prior h/o carcinoid tumor s/p resection.
- Currently being evaluated by Dr. Pérez.
- Recent labs with elevated 5-HIAA.
- PET scheduled for this Saturday for further evaluation / localization.
- Follow-up with Oncology as planned.
DVT Prophylaxis: Lovenox
Code Status: Full
[2024-05-19 23:13] VITALS: BP 170/90
[2024-05-20 01:14] VITALS: BMI 24.5
[2024-05-20] MEDS: LR 1000 IV (01:15)
[2024-05-20 02:14] VITALS: BMI 23.4
[2024-05-20 02:15] VITALS: BP 160/88
[2024-05-20 02:34] VITALS: BP 159/104; BP 159/93; BP 160/88; PULSE 77; PULSE 95
[2024-05-20 07:38] LABS: Hematocrit 37.6 % (39.0-52.0); Hemoglobin 12.9 g/dL (13.0-18.0); Mean Corp Hgb Conc. 34.3 g/dL (33.0-37.0); Mean Corpuscular Hgb 31.5 pg (27.0-31.0); Mean Corpuscular Volume 91.9 fL (80.0-94.0); Mean Platelet Volume 10.1 fL (7.4-10.4); Platelet Count 142 10^3/uL (130-400); Red Blood Cell Count 4.09 10^6/uL (4.70-6.10); White Blood Cell Count 7.4 10^3/uL (4.8-10.8)
[2024-05-20 07:47] LABS: Blood Urea Nitrogen 19 mg/dl (9-20); Calcium 8.8 mg/dl (8.4-10.2); Carbon Dioxide 24 mmol/L (22-30); Chloride 107 mmol/L (98-107); Estimated Creatinine Clearance 57 ml/min; Glucose 92 mg/dl (70-99); Potassium 3.6 mmol/L (3.5-5.1); Sodium 137 mmol/L (135-145); eGFR > 60.00
[2024-05-20 07:57] VITALS: BP 160/94
[2024-05-20 08:16] LABS: TSH Reflex To Free T4 0.75 uIU/ml (0.47-4.68)
[2024-05-20] MEDS: ZYLOPRIM 300 MG PO (08:57)
[2024-05-20] MEDS: COREG 6.25 MG PO ×2 (08:57→23:01)
--- NOTE | 2024-05-20 10:51 | CM ---
Reviewed the chart notes and spoke with the patient and his spouse at the bedside. The patient is admitted under observational status. BE[facility]ER letter provided and explained.
The patient resides with his spouse in an independent apartment at [facility]. The patient does not have any DME in home, no had VN or been to a SNF. The pharmacy of choice is [facility]. PT currently evaluating patient at
bedside. CM continues to be available to patient/family and is monitoring medical plan for needs at discharge.
Plan: Discharge plans will depend on the patient's progress.
--- NOTE | 2024-05-20 11:03 | W.PN.HOSP.TC ---
Today's Communication/Plan
-
PT eval
stop IVF later today
tentative dc
monitor o2 status
Assessment / Plan
Assessment / Plan
A/P: Patient is a 78y M with PMH significant for carcinoid tumor, HTN and CKD who presents to ED for evaluation after fall at home.
COVID-19
Hypoxemic Respiratory Insufficiency secondary to the above
Generalized Weakness secondary to the above
Fall at Home - multifactorial
- Mildly hypoxemic in the ED with room air SpO2 of 91%. Stable on RA currently.
- No fever, cough, etc.
- Supportive care. O2 / albuterol MDI if needed.
- Follow proper precautions.
- Patient / family not interested in Paxlovid at this time.
- Follow for any new / worsening symptoms.
Ambulatory Dysfunction
Dizziness
- This has been a chronic issue over the past several months - exacerbated by acute illness / COVID.
- PT / vestibular therapy evaluation. Meclizine prn if needed post Pt eval
- Recent MT scan without evidence of Parkinson's disease. Ortho noted-no significant drop in BP.
- Follow-up with Neurology as an outpatient (sees Dr. Emery).
Dehydration
-on IVF. If tolerating diet can be stopped later today.
Benign Hypertension
- Stable. Continue carvedilol.
CKD III
- Stable. Renal function at / near known baseline.
- Follow for any changes.
ASCVD / CVA / TIA
- No new focal neurologic complaints.
- Recent episode of amaurosis fugax following CT scan @ [facility].
- Continue ASA, statin, etc.
Hyperparathyroidism
- s/p parathyroidectomy. Continue calcitriol.
Carcinoid Syndrome
- Chronic diarrhea and prior h/o carcinoid tumor s/p resection.
- Currently being evaluated by Dr. Pérez.
- Recent labs with elevated 5-HIAA.
- PET scheduled for this Saturday for further evaluation / localization.
- Follow-up with Oncology as planned.
DVT Prophylaxis: Lovenox
Code Status: Full
PT eval.
d/w with spouse at bedside in details
Anticipated Discharge: Within 24 hours
Subjective/Interval History
-
Date of Service: May 20, 2024
states appetite is improving
states of chronic back pain
Objective Data
-
Labs:
Laboratory Results
05/20/24
06:48
WBC 7.4
Hgb 12.9 L
Hct 37.6 L
Plt Count 142
Sodium 137
Potassium 3.6
Chloride 107
Carbon Dioxide 24
BUN 19
Creatinine 1.0
Glucose 92
Calcium 8.8
Vital Signs:
Vital Signs
Temp Pulse Resp BP Pulse Ox
99.1 F 74 16 160/94 92
05/20/24 07:57 05/20/24 08:57 05/20/24 07:57 05/20/24 08:57 05/20/24 07:57
I&O
05/19/24 05/20/24 05/21/24
06:59 06:59 06:59
Output Total 200 / 200
Balance -200 / -200
Physical Exam
-
General: Well Developed, Well Nourished and No Apparent Distress
HEENT: Normocephalic and Atraumatic
Respiratory: Clear to Auscultation
Cardiac: Regular Rhythm
GI: Soft, Nontender, Nondistended and Normal Bowel Sounds
Genito-urinary: No Costovertebral Tender
Musculoskeletal: No Clubbing, No Cyanosis and No Edema
Skin: Warm
Neuro: Awake, Alert, Oriented, AO x 3 and Nonfocal/Grossly Intact; Negative Tremors, Slurred Speech or Facial Droop
Psych: Calm
Data Reviewed
-
Total Time Spent with Patient (in minutes): 55
[2024-05-20 15:14] VITALS: BP 140/86
[2024-05-20] MEDS: LR IV (16:09)
[2024-05-20] MEDS: ASPIR LOW (ENTERIC COATED) 81 MG PO (23:01)
[2024-05-20] MEDS: LIPITOR 40 MG PO (23:01)
[2024-05-20 23:15] VITALS: BP 155/90; BP 158/107; BP 174/93; PULSE 69; PULSE 75; PULSE 83
[2024-05-20] MEDS: LOVENOX 40 MG SC (23:19)
[2024-05-20 23:56] VITALS: BP 174/93
[2024-05-21 07:50] VITALS: BP 164/90
[2024-05-21] MEDS: COREG 6.25 MG PO (08:44)
[2024-05-21] MEDS: ZYLOPRIM 300 MG PO (08:44)
[2024-05-21] MEDS: TYLENOL 650 MG PO (08:44)
--- NOTE | 2024-05-21 09:08 | CM ---
Addendum entered by Sola Rothman RN 05/21/24 10:00:
[facility]
Original Note:
Reviewed chart notes. PT recommending home PT. Referrals sent via [facility] to [facility]. CM continues to be available to patient/family and is monitoring medical plan for needs at discharge.
Plan: Discharge to home with [facility] services.
--- NOTE | 2024-05-21 10:45 | W.PN.HOSP.TC ---
Today's Communication/Plan
-
dc home
Assessment / Plan
Assessment / Plan
A/P: Patient is a 78y M with PMH significant for carcinoid tumor, HTN and CKD who presents to ED for evaluation after fall at home.
COVID-19
Hypoxemic Respiratory Insufficiency secondary to the above
Generalized Weakness secondary to the above
Fall at Home - multifactorial
- Mildly hypoxemic in the ED with room air SpO2 of 91%. Remained stable on room air
- No fever, cough, etc.
- Supportive care. O2 / albuterol MDI if needed.
- Follow proper precautions.
- Patient / family not interested in Paxlovid at this time.
- Follow for any new / worsening symptoms.
Ambulatory Dysfunction
Dizziness
- This has been a chronic issue over the past several months - exacerbated by acute illness / COVID.
- PT / vestibular therapy evaluation. Meclizine prn if needed post Pt eval
- Recent MT scan without evidence of Parkinson's disease. Ortho noted-no significant drop in BP.
- Follow-up with Neurology as an outpatient (sees Dr. Emery).
Dehydration
-s.p ivf.
Benign Hypertension
- Stable. Continue carvedilol.
CKD III
- Stable. Renal function at / near known baseline.
- Follow for any changes.
ASCVD / CVA / TIA
- No new focal neurologic complaints.
- Recent episode of amaurosis fugax following CT scan @ [facility].
- Continue ASA, statin, etc.
Hyperparathyroidism
- s/p parathyroidectomy. Continue calcitriol.
Carcinoid Syndrome
- Chronic diarrhea and prior h/o carcinoid tumor s/p resection.
- Currently being evaluated by Dr. Pérez.
- Recent labs with elevated 5-HIAA.
- PET scheduled for this Saturday for further evaluation / localization.
- Follow-up with Oncology as planned.
DVT Prophylaxis: Lovenox
Code Status: Full
PT eval-walked Rx on chart
More than 30 minutes spent in discharge including
Final examination of the patient
Summarizing hospital stay
Instructions for continuing care to all relevant caregivers
Preparation of discharge records, prescriptions, and referral forms
Total time spent (in minutes): 40
d/w with spouse at bedside in details on daily basis
Anticipated Discharge: Today
Subjective/Interval History
-
Date of Service: May 21, 2024
denies dizziness
tolerating diet
Objective Data
-
Vital Signs:
Vital Signs
Temp Pulse Resp BP Pulse Ox
98.6 F 63 16 164/90 94
05/21/24 07:50 05/21/24 07:50 05/21/24 07:50 05/21/24 08:44 05/21/24 07:50
I&O
05/20/24 05/21/24 05/22/24
06:59 06:59 06:59
Intake Total 300 / 300
Output Total 550 / 550
Balance -250 / -250
Physical Exam
-
General: Well Developed, Well Nourished and No Apparent Distress
HEENT: Normocephalic and Atraumatic
Respiratory: Clear to Auscultation
Cardiac: Regular Rhythm
GI: Soft, Nontender, Nondistended and Normal Bowel Sounds
Genito-urinary: No Costovertebral Tender
Musculoskeletal: No Clubbing, No Cyanosis and No Edema
Skin: Warm
Neuro: Awake, Alert, Oriented, AO x 3 and Nonfocal/Grossly Intact; Negative Tremors, Slurred Speech or Facial Droop
Psych: Calm
--- NOTE | 2024-05-21 10:48 | W.DCSUMMARY ---
Discharge Summary
Discharge Data
Date of Admission: 05/19/24
Date of Discharge: 05/21/24
-
Pending Results: No
Hospital Course
78y M with PMH significant for carcinoid tumor, HTN, CKD, CVA, TIA, hyperparathyroidism and CKD who presents to ED for evaluation after fall at home. Patient was found to have acute COVID-19 infection. Patient was mildly hypoxic in ER and
patient and family were not interested in Paxlovid. Patient was afebrile. Patient was stable on room air. Patient received IV fluid resuscitation. Patient did not have any further lightheaded and dizziness. Patient was eval by physical and
Occupational Therapy. Patient repeated which showed a rolling walker. Patient without any lightheaded and dizziness off IV fluid. Patient was tolerating diet without any difficulty. Will be discharged home with outpatient therapy
Discharge Plan
-
Patient Disposition: Home with Home Care
Discharge Diagnosis/Procedures: Acute COVID-19 infection
Hypoxic respiratory insufficiency acute resolved
Amatory dysfunction
Dizziness
Dehydration
Condition: Fair
Diet: Low Cholesterol
Activity: As tolerated
Driving Restrictions: As prior to admission
Other Services: [facility]
Referrals:
Niki Kiser DO [Family Provider] - in less than 1 week
Prescriptions:
New
benzonatate 100 mg Capsule
200 mg PO TIDPRN PRN (Reason: severe cough) Qty: 20 0RF
Continued
allopurinol 300 mg Tablet
300 mg PO DAILY
calcitriol 0.25 mcg Capsule
0.25 mcg PO MOWEFR
cyanocobalamin (vitamin B-12) 1,000 mcg Tablet
1,000 mcg PO DAILY
calcium carbonate [Tums] 200 mg calcium (500 mg) Tablet,Chewable
200 mg PO HSPRN PRN (Reason: gerd)
carvedilol 6.25 mg Tablet
6.25 mg PO BID
therapeutic multivitamin Tablet
1 tab PO DAILY
calcium carbonate-vitamin D3 600 mg-5 mcg (200 unit) Tablet
1 tab PO DAILY
aspirin 81 mg Tablet,Delayed Release (Dr/Ec)
81 mg PO HS
atorvastatin 40 mg tablet
40 mg PO HS
Discharge Orders:
Discharge Patient (As Directed); Ordered 05/21/24
Ordered By: Sj Tomas
Discharge Date and Time
Discharge Date/Time: 05/21/24 11:26
Print Language: SLOVAK
== END 2024-05-21 11:26 | disposition home health service (06) ==
LOC: 2 NORTH 23:03
PROVIDERS: Student in an Organized Health Care Education/Training Program; ADMITTING PHYSICIAN Hospitalist; ATTENDING PHYSICIAN Hospitalist; EMERGENCY PHYSICIAN Emergency Medicine; FAMILY PHYSICIAN Internal Medicine
DX: U07.1 COVID-19 (principal); R42 Dizziness and giddiness; R06.89 Other abnormalities of breathing; R09.02 Hypoxemia; R26.2 Difficulty in walking, not elsewhere classified; I12.9 Hypertensive chronic kidney disease with stage 1 through stage 4 chronic kidney disease, or unspecified chronic kidney disease; I25.10 Atherosclerotic heart disease of native coronary artery without angina pectoris; Z79.82 Long term (current) use of aspirin; Z79.899 Other long term (current) drug therapy; Z90.49 Acquired absence of other specified parts of digestive tract; E34.00 Carcinoid syndrome, unspecified; E21.3 Hyperparathyroidism, unspecified
CPT/HCPCS: 70450; 71046; 80048; 80053; 84443; 85025; 85027; 87502; 87811; 93005; 96360; 97112; 97116; 97163; 99285

== ENCOUNTER 2024-08-26 23:13 | Emergency (ER) | payer MEDICARE, OTHER, SELFPAY ==
[2024-08-26 23:23] VITALS: BP 140/90
[2024-08-27 01:57] VITALS: BP 157/93; BMI 23.7
[2024-08-27 01:58] LABS: Hematocrit 40.3 % (39.0-52.0); Hemoglobin 14.1 g/dL (13.0-18.0); Mean Corp Hgb Conc. 35.0 g/dL (33.0-37.0); Mean Corpuscular Volume 92.4 fL (80.0-94.0); Nucleated Red Blood Cells % 0 % (-); Platelet Count 186 10^3/uL (130-400); Red Cell Dist. Width 13.1 % (11.5-14.5)
[2024-08-27 02:00] VITALS: BP 164/93
--- NOTE | 2024-08-27 02:26 | ED.GENMED ---
History of Present Illness
General
Chief Complaint: Chest Problem
Source: patient
Exam Limitations: none
Time Seen by Provider: 08/27/24 02:08
Nursing documentation reviewed up to this point in time: agreed with
History of Present Illness
History of Present Illness:
78-year-old male with a past medical history of hypertension hyperlipidemia, possible seizures presents to the emergency department with his for evaluation of shoulder pain. Patient reports that in July he was admitted at [facility]
after a seizure�he says that he was at his home at [facility] when he had a seizure ( says that she witnessed violent tonic-clonic shaking). EMS was called to the scene and it sounds like they had trouble finding a pulse initially on him and
performed about a minute of CPR before patient was alert and with it and CPR was stopped. I called over to [facility] to obtain some collateral history about his recent hospitalization: Apparently he presented with altered mental status it was felt
that he had a seizure rather than true cardiac arrest and was severely postictal and combative on arrival with a left facial droop and weakness. He was admitted with a neurologic consult and had CTA head and neck as well as an MRI, echocardiogram
which were all reassuring. It was felt that potentially seizure was brought on by tramadol which was prescribed by his pain management doctor for chronic low back pain.
Patient says that since this hospitalization he has been having pain in his left shoulder as well as in his sternum. He says that it was attributed to the brief CPR he received in the field by EMS. He did have x-rays of his chest/ribs that showed
no fractures twice over the past few weeks. He says that sternal pain has improved but he continues to have pain in his left shoulder and has had trouble sleeping the past few nights. He says that he has been taking NSAIDs for pain control but
this has not adequately controlled his symptoms and so he finally came to the ER this evening. His only other complaints on review of system are that he cannot sleep due to pain and that he has had some mild positional dizziness recently. Denies
any shortness of breath, cough, abdominal pain, nausea, vomiting, diaphoresis, leg pain or swelling or any other acute complaints.
Past History
Past History
ED Past Medical History: HTN, Hypercholesterolemia, Other (Remote history of carcinoid ) and Other (History of kidney stones )
ED Past Surgical History: Appendectomy and Bowel resection
Social History
Tobacco: Non-smoker
Alcohol: Occasional
Personal:
Living: with family
Employment: Retired
Family History
Family History: Negative Diabetes or CAD
Review of Systems
Review of Systems
All Other Systems: ROS reviewed and negative except as documented in HPI and ROS
Constitutional: Denies fever
Respiratory: Denies cough or trouble breathing
Cardiac: Reports chest pain (Sternal pain); Denies diaphoresis or palpitations
ABD/GI: Denies abdominal pain, nausea or vomiting
: Denies flank pain
Musculoskeletal: Reports joint pain (Shoulder pain); Denies neck pain or back pain
Neurological: Denies dizzy or headache
Phy Exam
Physical Exam
Physical Exam:
General: Awake, alert, oriented x3; no acute distress
Head: Normocephalic, atraumatic
Eyes: Conjunctiva normal, sclera anicteric
Throat: Airway intact, handling secretions
Neck: Trachea midline, supple without meningismus
Lungs: Clear to auscultation bilaterally, no wheezing, rales, rhonchi
Heart: Regular rate and rhythm, no murmurs, gallops, or rubs; mild tenderness in the parasternal region on the left, no bruising or crepitus noted in the chest wall
Abd: Soft, non distended, nontender
Neuro: Cranial nerves grossly intact, speech fluid
Skin: no rash
Extremities: No edema in extremities, equal pulses in all extremities; on exam of his left shoulder he does have some tenderness along the AC joint, no tenderness of the humerus/upper arm, no tenderness in the left elbow; strong left radial pulse,
motor and sensory intact radial, median, ulnar nerve distribution
Scores
Heart Failure Risk
Heart Failure Risk Score: Not Applicable
Heart Score for Chest Pain Patients
STEMI patient?: Not applicable
Withdrawal Assessment of Alcohol
Withdrawal Assessment Completed?: Not applicable
Course
Orders/Labs/Results
Orders:
Orders
08/26/24 23:14
ECG [Electrocardiogram (*1)] Urgent
Reason for Study: Chest Pain
EKG- Treatment ONCE
08/27/24 01:50
Basic Metabolic Panel Urgent
Complete Blood Count/With Diff Urgent
Troponin I Urgent
08/27/24 02:22
CR Shoulder - Left Min 2 View* Urgent
Comment:
Reason For Exam: left shoulder pain
08/27/24 03:36
Oxycodone [Roxicodone] 5 mg PO NOW STA
Abnormal Lab Results
08/27/24
01:50
RBC 4.36 L 10^6/uL
(4.70-6.10)
MCH 32.3 H pg
(27.0-31.0)
Absolute Neuts (auto) 6.7 H 10^3/uL
(1.4-6.5)
Absolute Monos (auto) 1.0 H 10^3/uL
(0.1-0.6)
Lymphocytes % 20.1 L %
(20.5-51.1)
Monocytes % 9.6 H %
(1.7-9.3)
Chloride 109 H mmol/L
(98-107)
BUN 21 H mg/dl
(9-20)
Glucose 115 H mg/dl
(70-99)
08/27/24 01:50
08/27/24 01:50
Vital Signs
Initial and Last Documented VS:
Initial Vital Signs
Temp Pulse Resp BP Pulse Ox
36.6 C 74 20 140/90 96
08/26/24 23:23 08/26/24 23:23 08/26/24 23:23 08/26/24 23:23 08/26/24 23:23
Last Documented Vital Signs
Temp Pulse Resp BP Pulse Ox
36.7 C 67 15 164/93 94
08/27/24 01:59 08/27/24 02:45 08/27/24 02:45 08/27/24 02:00 08/27/24 02:35
MDM/Problems Addressed
Differential Diagnosis Includes:
Shoulder strain, AC separation, tendinitis/tendinopathy, fracture, dislocation, referred cardiac pain
MDM/Problems Addressed:
78-year-old male presents for evaluation of shoulder pain�he says he had some pain in his left shoulder since seizure and brief episode of CPR by EMS during this event as described above. He says that over the past few days he has not been able to
sleep due to the shoulder pain. He has also had some pain in his sternum/ribs since the episode but this has generally improved. He has had multiple x-rays that show no fracture. His vitals were significant for hypertension but otherwise normal.
Physical exam is as above. He had labs sent in triage including a CBC and a CMP which were unremarkable. His troponin is undetectable and with consistent symptoms for weeks this is sufficient to rule out acute ND, low suspicion that this is
referred cardiac pain. Will check x-ray of the shoulder. Will reassess after the above.
X-ray of the shoulder does show significant AC separation�it appears he has had chronic separation but I think that this is likely source of his exacerbated pain likely after recent seizure/CPR event as described above. I had a long discussion with
the patient that she has already tried Tylenol, Lidoderm, NSAIDs without good pain control and is having trouble sleeping. I think it would be reasonable to trial low-dose opioids. He does have an appointment with Dr. Walter tomorrow to be seen
regarding his shoulder pain. I think he is stable for discharge but will observe after opioids to ensure that he tolerates it well as he says he did get some nausea with oxycodone in the past.
*Radiology
Radiology exam reviewed: preliminary read by ED provider
*Pulse Oximetry
SaO2: 94
Oxygen Mode of Delivery: Room air
Patient hypoxic: no (94%)
*EKG
Interpreted by ED Provider?: Yes
Heart Rate: 69
Rate: normal
Rhythm: sinus
Lyons: left axis deviation
Interval: normal interval
QRS Pattern: normal QRS
Ischemia: no ischemia
*Critical Care Note
Total Time (30-74mins, 75-104mins- exclusive of procedures): Not Applicable
Data Reviewed
Review of Other/Old Records Reveals: Labs and Records
Source: patient, records and spouse
Patient Management
Discussion with other providers: Other (Discussed with [facility] physicians to obtain some collateral history about recent hospitalization)
ED Attending Note
-
Portions of this chart may have been created with voice recognition software.� Occasional wrong word or��sound alike� substitutions may have occurred due to the inherent limitations of voice recognition software.
Discharge Plan
Departure
Discharge Problem:
Left shoulder pain, AC separation
Instructions: shoulder
Prescriptions:
New
oxycodone 5 mg tablet
5 mg PO Q6H PRN (Reason: Pain) Qty: 10 0RF
No Action
allopurinol 300 mg Tablet
300 mg PO DAILY
calcitriol 0.25 mcg Capsule
0.25 mcg PO MOWEFR
cyanocobalamin (vitamin B-12) 1,000 mcg Tablet
1,000 mcg PO DAILY
calcium carbonate [Tums] 200 mg calcium (500 mg) Tablet,Chewable
200 mg PO HSPRN PRN (Reason: gerd)
carvedilol 6.25 mg Tablet
6.25 mg PO BID
therapeutic multivitamin Tablet
1 tab PO DAILY
calcium carbonate-vitamin D3 600 mg-5 mcg (200 unit) Tablet
1 tab PO DAILY
aspirin 81 mg Tablet,Delayed Release (/Ec)
81 mg PO HS
atorvastatin 40 mg tablet
40 mg PO HS
benzonatate 100 mg Capsule
200 mg PO TIDPRN PRN (Reason: severe cough) Qty: 20 0RF
Referrals:
Niki Kiser DO [Family Provider, Internal Medicine]
Jose Guadalupe Walter MD [Active, Orthopedics] - Tomorrow
Activity Restrictions/Additional Instructions:
Thank you for visiting the Emergency Department at [facility].
1. Please schedule a follow up appointment as directed. Call first thing tomorrow morning to make an appointment.
2. If indicated, please take your medications as instructed and indicated on discharge paperwork.
3. If any of your symptoms do not improve, or persist, or become more severe within 6-12 hours, please return to the emergency department for further care.
4. Please return to the emergency department if you develop a headache, neck pain/stiffness, fever greater than 100.4F, chest pain, shortness of breath, persistent nausea, vomiting, slurred speech, difficulty walking, numbness/tingling, weakness,
signs of infection or any other symptoms that are worrisome to you.
Please call [phone] if you have any questions.
Interventions
Interventions:
*Risk Screen - Suicide Last Done: 08/26/24 23:23
*General Assessment Last Done: 08/27/24 02:01
*Neglect/Abuse Screening Last Done: 08/26/24 23:23
*ED- Fall Risk Assessment Last Done: 08/27/24 02:00
*ED COVID-19 Vaccine History Last Done: 08/27/24 02:00
ED- Cardiac Assessment Last Done: 08/27/24 02:02
ED- Pulmonary Assessment Last Done: 08/27/24 02:03
Discharge Date and Time
Print Language: CZECH
[2024-08-27 02:32] LABS: Blood Urea Nitrogen 21 mg/dl (9-20); Calcium 10.0 mg/dl (8.4-10.2); Carbon Dioxide 24 mmol/L (22-30); Chloride 109 mmol/L (98-107); Estimated Creatinine Clearance 57 ml/min; Glucose 115 mg/dl (70-99); Sodium 140 mmol/L (135-145); Troponin I < 0.012 ng/ml; eGFR > 60.00
[2024-08-27] MEDS: ROXICODONE 5 MG PO (03:49)
[2024-08-27 04:00] VITALS: BP 137/68
[2024-08-27] MEDS: TORADOL 15 MG IV (04:23)
[2024-08-27 05:00] VITALS: BP 155/91
== END 2024-08-27 05:50 | disposition home or self-care (01) ==
LOC: EMR 23:13
PROVIDERS: Emergency Medicine; EMERGENCY PHYSICIAN Emergency Medicine; FAMILY PHYSICIAN Internal Medicine
DX: S43.102A Unspecified dislocation of left acromioclavicular joint, initial encounter (principal); M25.512 Pain in left shoulder; R42 Dizziness and giddiness; R07.9 Chest pain, unspecified; X58.XXXA Exposure to other specified factors, initial encounter; I10 Essential (primary) hypertension; E78.00 Pure hypercholesterolemia, unspecified; R56.9 Unspecified convulsions; K21.9 Gastro-esophageal reflux disease without esophagitis; M19.90 Unspecified osteoarthritis, unspecified site; M10.9 Gout, unspecified; M54.50 Low back pain, unspecified; G89.29 Other chronic pain; Z79.82 Long term (current) use of aspirin; Z85.068 Personal history of other malignant neoplasm of small intestine; Z87.442 Personal history of urinary calculi; Z86.73 Personal history of transient ischemic attack (TIA), and cerebral infarction without residual deficits; Z88.8 Allergy status to other drugs, medicaments and biological substances; Z91.048 Other nonmedicinal substance allergy status; Z98.0 Intestinal bypass and anastomosis status
CPT/HCPCS: 99284; 96374; 73030; 80048; 84484; 85025; 93005

== ENCOUNTER → 2024-09-07 08:52 | Outpatient (REF) | payer MEDICARE, OTHER, SELFPAY ==
--- NOTE | 2024-09-10 09:14 | EEG.RPT ---
Electroencephalogram Report
Recording
Date of EE09/07/24
Type of EEG: Ambulatory
Length of EEG recordin day 21 minutes
Done with Video Recording: No
Patient Status: Outpatient
Recording Conditions: Awake, Drowsy and Asleep
Hyperventilation Performed: No
Photic Stimulation Performed: No
Report
24 HOUR AMBULATORY EEG SUMMARY
24 HOUR AMBULATORY EEG CONCLUSION(S):
Mildly abnormal EEG for age due to minimal background slowing
CLINICAL CORRELATION:
Changes seen on the study are minimally suggestive of bihemispheric cortical dysfunction and are not epileptiform.
The patient�s logs did not indicate clinical symptoms.
Consideration for multiple day monitoring may be given.
Clinical correlation is advised.
METHODS:
A 21 channel digitized electroencephalogram (EEG) was initiated in the Clinical Neurophysiology Laboratory. The patient wore the device outside of the laboratory and returned after 24 hours for electrode and recorder removal. The 10/20
international system of electrode placement was used with bipolar electrode montage recorded. ECG was monitored. The [employer] quantitative EEG analysis system was utilized.
IMPRESSION(S):
Quality
Good
Background
Maximal wakefulness: Theta
There was a normal anterior-posterior voltage gradient. With eye opening the background activity changed. No significant asymmetries of background activity noted.
Sleep
Drowsiness was suggested by slowing of the background rhythms
Stage I sleep was recorded
Stage 2 sleep was recorded
ECG
Unremarkable
== END ==
LOC: EEG 08:52
PROVIDERS: ATTENDING PHYSICIAN Psychiatry & Neurology Neurology; FAMILY PHYSICIAN Internal Medicine
DX: R56.9 Unspecified convulsions (principal)
CPT/HCPCS: 95708

== ENCOUNTER → 2024-10-30 11:49 | Outpatient (REF) | payer MEDICARE, OTHER, SELFPAY | LOC: MRI 3T 11:49 | PROVIDERS: ATTENDING PHYSICIAN Specialist; FAMILY PHYSICIAN Internal Medicine | DX: R97.20 Elevated prostate specific antigen [PSA] (principal) | CPT/HCPCS: 72197; A9575 ==

== ENCOUNTER → 2024-11-03 18:36 | Outpatient (REF) | payer MEDICARE, OTHER, SELFPAY | LOC: MRI 18:36 | PROVIDERS: ATTENDING PHYSICIAN Internal Medicine Endocrinology, Diabetes & Metabolism; FAMILY PHYSICIAN Internal Medicine | DX: D3A.019 Benign carcinoid tumor of the small intestine, unspecified portion (principal) | CPT/HCPCS: 74183; A9575 ==